=== PATIENT | female | born 1985 | race Caucasian/White ===

== ENCOUNTER 2021-01-28 18:55 | Inpatient (IN) ==
[2021-01-28] MEDS: LACTATED RINGER'S 1,000 ML IV PRN ×2 (19:05→20:06)
[2021-01-28] MEDS ORDERED: fentaNYL citrate 100 MCG/2 ML VIAL ONE (19:11)
[2021-01-28] MEDS ORDERED: ePHEDrine sulfate 50 MG/ML AMP ONE (19:11)
[2021-01-28] MEDS ORDERED: BUPIVACAINE 0.25% 30 ML VIAL ONE (19:11)
[2021-01-28] MEDS ORDERED: SODIUM CHLORIDE 0.9% INJ 10 ML VIAL ONE (19:11)
[2021-01-28] MEDS ORDERED: fentaNYL 2MCG/ML ROPIVACAINE 1.25MG/ML 100 ML BAG EPI ONE (19:14)
[2021-01-28] MEDS ORDERED: OXYTOCIN 30 UNITS/500 ML BAG IV PRN ×2 (19:17→22:23)
[2021-01-28 19:40] LABS: Hematocrit (blood only) 37.9 % (37-47); Hemoglobin 12.7 g/dL (12.0-16.0); Mean Corpuscular Hemoglobin 29.3 pg (25-34); Mean Corpuscular Hgb Conc 33.5 g/dL (32-36); Mean Corpuscular Volume 87.3 fL (80-100); Mean Platelet Volume 11.1 fL (7.4-10.4); Platelet Count 156 K/uL (130-400); RDW Coefficient of Variation 16.3 % (11.5-14.5); RDW Standard Deviation 52.7 fL (36.4-46.3); Red Blood Count 4.34 M/uL (4.2-5.4); White Blood Count 19.12 K/uL (4.8-10.8)
[2021-01-28] MEDS ORDERED: NALOXONE HCL 0.4 MG/1 ML VIAL/CARP IV PRN (20:11)
[2021-01-28] MEDS ORDERED: NALOXONE HCL 1 MG in SODIUM CHLORIDE 0.9% 1000ML 1,000 ML IV PRN (20:11)
[2021-01-28] MEDS ORDERED: NALBUPHINE HCL INJ 10 MG/ML AMP IV PRN (20:11)
[2021-01-28] MEDS ORDERED: ONDANSETRON INJ 2 MG/ML 2 ML VIAL IV PRN (20:11)
[2021-01-28] MEDS ORDERED: diphenhydrAMINE 50 MG/ML VIAL IV PRN (20:11)
--- NOTE | 2021-01-28 20:11 | Anesthesiology Consultation ---
Date of Service January 28, 2021 Assessment & Plan ASA ASA2 Proposed Anesthesia Anesthesia Type: Labor Epidural Risk / Benefits Reviewed With: PT / POA / Parent / Guardian, Accepts Plan and Informed Consent Obtained History Height/Weight Height: 5 ft 1 in Weight: 79.832 kg Allergies Allergy/AdvReac Type Severity Reaction Status Date / Time nickel Allergy Intermediate CONTACT Verified 08/02/20 19:00 RASH, BLISTERS cinnamon AdvReac Mild thrush IN Verified 08/02/20 19:00 MOUTH janet AdvReac Mild Diarrhea Verified 08/02/20 19:00 Medications Home Medications Medication Instructions Recorded Confirmed Last Taken sertraline 100 mg tablet 100 mg PO QPM 08/02/20 01/28/21 01/28/21 ferrous sulfate 325 mg (65 mg 325 mg PO DAILY 01/28/21 01/28/21 01/28/21 iron) tablet (Iron (ferrous sulfate)) vit no.95-ferrous 1 tab PO DAILY 01/28/21 01/28/21 01/28/21 fumarate 28 mg-folic acid 800 mcg tablet () Active Medications Generic Name Dose Route Start Last Admin Trade Name Freq PRN Reason Stop Dose Admin Ropivacaine 100 ml 01/28/21 20:11 01/28/21 20:41 Fentanyl 2mcg/Ml Ropivacaine 1.25mg/Ml 100 Ml Bag EPI 01/29/21 20:10 100 ml PRN PRN Administration Pain R/T Labor Protocol Past Medical History Medical History (Updated 01/28/21 @ 19:36 by Erin Vidales RN) Anxiety and depression Exercise-induced asthma GERD (gastroesophageal reflux disease) Gestational diabetes Diet Controlled Palpitations Wrist fracture, left Exercise / Class Metabolic Activity II 4-5 Yardwork/Stairs/Walk up hill Past Family History Family History Grandmother (Paternal) Family history of diabetes mellitus Grandmother (Maternal) Family history of diabetes mellitus Grandfather (Maternal) Family hx of colon cancer Mother Hearing loss Allergies Asthma Grandmother Hypertension Stroke Grandfather Cancer Other Heart disease No family history of adverse response to anesthesia No family history of bleeding disorder Past Surgical History Surgical History History of surgery on arm History of surgery on wrist [place] teeth removed Past Anesthesia History No Hx of Anesthesia Complications and No Family Hx of Anesthesia Complications History of PONV No Hx of PONV and No Hx of Motion Sickness Social History Smoking Status: Never smoker Hx Alcohol Use: Yes Alcohol type: beer, wine and hard liquor alcohol intake frequency: a few times a month Hx Substance Use: No substance use type: does not use Review of Systems denies fever/cough/ colds/ chest pain/ SOB/ IMELDA denies IMELDA Physical Exam Vital Signs Last Vital Signs Temp 37.6 C H 01/28/21 19:17 Pulse 85 01/28/21 20:48 Resp 18 01/28/21 19:17 BP 99/54 L 01/28/21 20:50 Pulse Ox 98 01/28/21 20:47 ENMT Mouth: no TMJ abnormality and no dentition abnormality Thyromental Distance: > or= 3.5 Finger Breadths Mallampati Class: II Neck neck extension not limited Respiratory normal respiratory effort; no respiratory distress Auscultation: lungs clear to auscultation bilaterally Cardiovascular Rate/Rhythm: regular rate and regular rhythm Neurologic moves all extremities Psychiatric Orientation: alert and oriented x 3 Testing Laboratory Results 01/28/21 19:29 01/28/21 19:41 POC Glucose 112 H
[2021-01-28] MEDS ORDERED: GENTAMICIN CONSULT ACTIVE PRN (20:40)
[2021-01-28] MEDS: fentaNYL 2MCG/ML ROPIVACAINE 1.25MG/ML 100 ML BAG EPI PRN (20:41)
[2021-01-28] MEDS ORDERED: ACETAMINOPHEN 1000 MG/100 ML IV IV ONE (20:42)
[2021-01-28] MEDS ORDERED: ACETAMINOPHEN 1,000 MG/100 ML VIAL IV STA (20:50)
--- NOTE | 2021-01-28 20:55 | Communication Note ---
Date of Service: January 28, 2021 during first attempt at epidural placement, no blood noted in touey needle, but blood found on pull back with epidural catheter. pt noted a headace on left side of protestant at same time. no evidence of csf. i did not injected any local into catheter. i immediately withdrew catheter and went one level higher. no issues with second attempt. headache is not constant, but worsens with contractions and quick head movements.
[2021-01-28] MEDS: ePHEDrine sulfate 50 MG/ML AMP IV PRN (21:08)
--- NOTE | 2021-01-28 21:08 | Obstetrical Progress Note ---
Date of Service January 28, 2021 Assessment & Plan (1) : Plan: Pt presented to L&D with home rn vascular she was attempting a home delivery Pt has SROM at around 1300HRS. According to rn vascular, she became fully dilated and after 3hrs of pushing,[employer] brought her to the hospital. she reports amniotic fluid was clear at SROM. and no meconium seen On arrival to L&D, pt was admitted. she reported severe pain with ctx and requested epidural analgesia labs were ordered and anesthesia consult placed FHR CAT1 Ctx 1-3min VE; Anterior lip/0 station Labs show WBC- 19, Temp37.6, No fundal tenderness, no odor w/vag disch- In view of pt;s presentation, will start antibx Above finding is discussed with pt and spouse Expectant management for now in anticipation for vaginal delivery Admission and Anticipated Discharge Date Admission Date: January 28, 2021 Results & Data ([facility]) Vital Signs (Past 12 Hours) Vital Signs Temp Pulse Resp BP Pulse Ox 01/28/21 20:54 107/57 L 01/28/21 20:52 85 101/54 L 99 01/28/21 20:50 83 99/54 L 01/28/21 20:48 85 106/59 L 01/28/21 20:47 85 98 01/28/21 20:46 87 102/57 L 01/28/21 20:44 85 101/57 L 01/28/21 20:42 86 99/58 L 98 01/28/21 20:40 84 98/53 L 01/28/21 20:38 91 H 115/58 L 01/28/21 20:37 84 98 01/28/21 20:32 82 97 01/28/21 20:31 79 130/82 01/28/21 20:27 83 97 01/28/21 20:22 90 97 01/28/21 20:17 81 99 01/28/21 20:12 83 97 01/28/21 20:07 85 99 01/28/21 20:02 78 98 01/28/21 19:57 78 98 01/28/21 19:52 79 98 01/28/21 19:47 77 98 01/28/21 19:42 80 98 01/28/21 19:37 80 98 01/28/21 19:32 79 98 01/28/21 19:27 82 98 01/28/21 19:22 76 98 01/28/21 19:17 37.6 C H 18 01/28/21 19:06 80 121/70
[2021-01-28] MEDS: AMPICILLIN 2,000 MG in SODIUM CHLOR 0.9% AD-VAN 100 ML IV SCH (21:15)
[2021-01-28] MEDS: GENTAMICIN SULFATE 400 MG in DEXTROSE 5% 100 ML IV SCH (21:47)
--- NOTE | 2021-01-28 22:23 | Labor Progress Brief Note ---
Date of Service January 28, 2021 Assessment & Plan (1) : Plan: FHR; CAT1 Ctx; 5-6 mins VE; Unchanged discussed Pitocin augmentation ' Pt agrees EFW by emilee; 8-9lbs Admission and Anticipated Discharge Date Admission Date: January 28, 2021 Results & Data ([facility]) Vital Signs (Past 12 Hours) Vital Signs Temp Pulse Resp BP Pulse Ox 01/28/21 22:17 106 H 98 01/28/21 22:12 93 H 100 01/28/21 22:07 88 99 01/28/21 22:02 89 99 01/28/21 22:00 37.1 C 18 01/28/21 21:57 96 H 99 01/28/21 21:52 91 H 99 01/28/21 21:47 93 H 100 01/28/21 21:45 99 H 16 106/49 L 01/28/21 21:42 87 99 01/28/21 21:39 90 105/51 L 01/28/21 21:37 88 99 01/28/21 21:34 78 102/53 L 01/28/21 21:32 88 98 01/28/21 21:30 98 H 18 97/52 L 01/28/21 21:29 94 H 80 L 01/28/21 21:27 83 100 01/28/21 21:23 86 105/52 L 92 01/28/21 21:22 92 H 100 01/28/21 21:19 90 102/55 L 01/28/21 21:18 87 84 L 01/28/21 21:17 87 97 01/28/21 21:15 18 01/28/21 21:14 80 123/58 L 01/28/21 21:12 93 H 100 01/28/21 21:10 79 110/56 L 01/28/21 21:09 73 115/58 L 01/28/21 21:07 67 99 01/28/21 21:05 79 81/53 L 01/28/21 21:02 76 98 01/28/21 21:01 75 92/55 L 01/28/21 21:00 37.1 C 16 01/28/21 20:57 80 98 01/28/21 20:54 107/57 L 01/28/21 20:52 85 101/54 L 99 01/28/21 20:50 83 99/54 L 01/28/21 20:48 85 106/59 L 01/28/21 20:47 85 98 01/28/21 20:46 87 102/57 L 01/28/21 20:45 20 01/28/21 20:44 85 101/57 L 01/28/21 20:42 86 99/58 L 98 01/28/21 20:40 84 18 98/53 L 01/28/21 20:38 91 H 115/58 L 01/28/21 20:37 84 98 01/28/21 20:35 18 01/28/21 20:32 82 97 01/28/21 20:31 79 130/82 01/28/21 20:27 83 97 01/28/21 20:22 90 97 01/28/21 20:17 81 99 01/28/21 20:12 83 97 01/28/21 20:07 85 99 01/28/21 20:02 78 98 01/28/21 19:57 78 98 01/28/21 19:52 79 98 01/28/21 19:47 77 98 01/28/21 19:42 80 98 01/28/21 19:37 80 98 01/28/21 19:32 79 98 01/28/21 19:27 82 98 01/28/21 19:22 76 98 01/28/21 19:17 37.6 C H 18 01/28/21 19:06 80 121/70
[2021-01-29] MEDS: ePHEDrine sulfate 50 MG/ML AMP IV PRN (00:21)
[2021-01-29] MEDS: LACTATED RINGER'S 1,000 ML IV PRN (02:21)
[2021-01-29] MEDS: AMPICILLIN 2,000 MG in SODIUM CHLOR 0.9% AD-VAN 100 ML IV SCH ×4 (03:02→23:47)
--- NOTE | 2021-01-29 03:34 | Labor Progress Brief Note ---
Date of Service January 29, 2021 Assessment & Plan (1) : Plan: Pt doing well FHR; CAT1 Ctx; 1-2 Pitocin; 14mu VE 10/100/-1 Pt will start pushing Admission and Anticipated Discharge Date Admission Date: January 28, 2021 Results & Data ([facility]) Vital Signs (Past 12 Hours) Vital Signs Temp Pulse Resp BP Pulse Ox 01/29/21 03:27 98 H 100 01/29/21 03:22 98 H 97 01/29/21 03:17 89 117/66 98 01/29/21 03:12 87 98 01/29/21 03:07 83 99 01/29/21 03:02 93 H 118/69 99 01/29/21 02:57 93 H 100 01/29/21 02:52 96 H 98 01/29/21 02:49 81 119/60 01/29/21 02:47 96 H 99 01/29/21 02:42 94 H 99 01/29/21 02:37 91 H 99 01/29/21 02:32 95 H 124/71 99 01/29/21 02:27 102 H 99 01/29/21 02:22 91 H 97 01/29/21 02:18 103 H 117/60 01/29/21 02:17 101 H 97 01/29/21 02:12 107 H 98 01/29/21 02:07 96 H 97 01/29/21 02:05 37.2 C 18 01/29/21 02:02 90 102/54 L 97 01/29/21 01:57 83 95 01/29/21 01:52 87 95 01/29/21 01:47 91 H 95 01/29/21 01:42 86 95 01/29/21 01:37 83 94 01/29/21 01:33 83 94/50 L 01/29/21 01:32 81 96 01/29/21 01:27 79 96 01/29/21 01:22 80 95 01/29/21 01:17 79 95 01/29/21 01:16 93 H 92/52 L 01/29/21 01:12 91 H 95 01/29/21 01:08 16 01/29/21 01:07 103 H 95 01/29/21 01:02 91 H 95 01/29/21 01:01 89 88/53 L 01/29/21 00:57 96 H 96 01/29/21 00:52 89 93 01/29/21 00:47 92 H 90/53 L 93 01/29/21 00:42 84 94 01/29/21 00:37 95 H 94 01/29/21 00:35 87 94 01/29/21 00:32 89 95/56 L 95 01/29/21 00:30 90 94 01/29/21 00:27 84 95 01/29/21 00:25 82 94 01/29/21 00:22 71 96 01/29/21 00:18 78 88/54 L 94 01/29/21 00:17 79 95 01/29/21 00:12 79 96 01/29/21 00:07 91 H 96 01/29/21 00:03 37.3 C 81 18 127/60 01/29/21 00:02 83 98 01/29/21 00:01 86 94 01/28/21 23:57 85 95 01/28/21 23:52 81 96 01/28/21 23:47 81 96 01/28/21 23:46 85 113/67 01/28/21 23:42 82 97 01/28/21 23:37 89 98 01/28/21 23:32 95 H 97 01/28/21 23:31 80 114/67 01/28/21 23:27 81 98 01/28/21 23:22 86 98 01/28/21 23:17 90 98 01/28/21 23:16 85 113/61 01/28/21 23:12 88 98 01/28/21 23:07 89 98 01/28/21 23:02 86 114/66 98 01/28/21 23:00 16 01/28/21 22:57 80 98 01/28/21 22:52 87 98 01/28/21 22:47 96 H 98 01/28/21 22:42 107 H 98 01/28/21 22:41 96 H 112/64 01/28/21 22:37 96 H 99 01/28/21 22:32 94 H 100 01/28/21 22:27 92 H 100 01/28/21 22:22 96 H 99 01/28/21 22:17 106 H 98 01/28/21 22:12 93 H 100 01/28/21 22:07 88 99 01/28/21 22:02 89 99 01/28/21 22:00 37.1 C 18 01/28/21 21:57 96 H 99 01/28/21 21:52 91 H 99 01/28/21 21:47 93 H 100 01/28/21 21:45 99 H 16 106/49 L 01/28/21 21:42 87 99 01/28/21 21:39 90 105/51 L 01/28/21 21:37 88 99 01/28/21 21:34 78 102/53 L 01/28/21 21:32 88 98 01/28/21 21:30 98 H 18 97/52 L 01/28/21 21:29 94 H 80 L 01/28/21 21:27 83 100 01/28/21 21:23 86 105/52 L 92 01/28/21 21:22 92 H 100 01/28/21 21:19 90 102/55 L 01/28/21 21:18 87 84 L 01/28/21 21:17 87 97 01/28/21 21:15 18 01/28/21 21:14 80 123/58 L 01/28/21 21:12 93 H 100 01/28/21 21:10 79 110/56 L 01/28/21 21:09 73 115/58 L 01/28/21 21:07 67 99 01/28/21 21:05 79 81/53 L 01/28/21 21:02 76 98 01/28/21 21:01 75 92/55 L 01/28/21 21:00 37.1 C 16 01/28/21 20:57 80 98 01/28/21 20:54 107/57 L 01/28/21 20:52 85 101/54 L 99 01/28/21 20:50 83 99/54 L 01/28/21 20:48 85 106/59 L 01/28/21 20:47 85 98 01/28/21 20:46 87 102/57 L 01/28/21 20:45 20 01/28/21 20:44 85 101/57 L 01/28/21 20:42 86 99/58 L 98 01/28/21 20:40 84 18 98/53 L 01/28/21 20:38 91 H 115/58 L 01/28/21 20:37 84 98 01/28/21 20:35 18 01/28/21 20:32 82 97 01/28/21 20:31 79 130/82 01/28/21 20:27 83 97 01/28/21 20:22 90 97 01/28/21 20:17 81 99 01/28/21 20:12 83 97 01/28/21 20:07 85 99 01/28/21 20:02 78 98 01/28/21 19:57 78 98 01/28/21 19:52 79 98 01/28/21 19:47 77 98 01/28/21 19:42 80 98 01/28/21 19:37 80 98 01/28/21 19:32 79 98 01/28/21 19:27 82 98 01/28/21 19:22 76 98 01/28/21 19:17 37.6 C H 18 01/28/21 19:06 80 121/70
[2021-01-29] MEDS: fentaNYL 2MCG/ML ROPIVACAINE 1.25MG/ML 100 ML BAG EPI PRN (03:47)
--- NOTE | 2021-01-29 06:29 | History & Physical Bridge Note ---
Date of Service January 29, 2021 History & Physical Bridge Note I have examined the patient, reviewed the History & Physical and in the interval since the performance of the History & Physical I have noted the following changes of clinical significance: no changes noted
--- NOTE | 2021-01-29 06:31 | Labor Progress Brief Note ---
Date of Service January 29, 2021 Assessment & Plan (1) : Plan: No change in station after 3 hrs of effective pushing pt is agreeable to c/sec surgery risk and complications discussed and reviewed with pt and spouse consent obtained will proceed to OR Admission and Anticipated Discharge Date Admission Date: January 28, 2021 Results & Data ([facility]) Vital Signs (Past 12 Hours) Vital Signs Temp Pulse Resp BP Pulse Ox 01/29/21 06:25 89 100 01/29/21 06:20 36.9 C 87 98 01/29/21 06:16 90 115/66 01/29/21 06:15 92 H 98 01/29/21 06:10 95 H 98 01/29/21 06:06 115 H 81 L 01/29/21 06:05 109 H 97 01/29/21 06:02 99 H 148/85 H 01/29/21 06:00 107 H 96 01/29/21 05:57 111 H 87 L 01/29/21 05:55 101 H 98 01/29/21 05:49 105 H 97 01/29/21 05:47 103 H 118/63 01/29/21 05:46 110 H 90 01/29/21 05:44 105 H 97 01/29/21 05:39 104 H 97 01/29/21 05:34 108 H 97 01/29/21 05:32 118 H 142/80 H 01/29/21 05:29 111 H 96 01/29/21 05:28 70 L 01/29/21 05:24 114 H 97 01/29/21 05:19 120 H 97 01/29/21 05:14 104 H 97 01/29/21 05:13 115 H 82 L 01/29/21 05:09 107 H 98 01/29/21 05:07 112 H 80 L 01/29/21 05:04 104 H 97 01/29/21 05:01 101 H 80 L 01/29/21 04:59 93 H 96 01/29/21 04:55 37.8 C H 18 01/29/21 04:54 101 H 98 01/29/21 04:50 98 H 88 L 01/29/21 04:49 98 H 93 01/29/21 04:46 103 H 111/56 L 01/29/21 04:43 91 H 97 01/29/21 04:41 106 H 83 L 01/29/21 04:38 94 H 97 01/29/21 04:34 97 H 91 01/29/21 04:33 97 H 113/57 L 93 01/29/21 04:27 87 98 01/29/21 04:25 109 H 86 L 01/29/21 04:22 95 H 98 01/29/21 04:17 119 H 97 01/29/21 04:16 109 H 107/63 01/29/21 04:12 94 H 98 01/29/21 04:07 96 H 97 01/29/21 04:02 96 H 122/71 97 01/29/21 03:57 127 H 96 01/29/21 03:52 112 H 97 01/29/21 03:47 100 H 124/63 98 01/29/21 03:42 96 H 100 01/29/21 03:37 89 99 01/29/21 03:32 37.3 C 96 H 18 133/66 98 01/29/21 03:27 98 H 100 01/29/21 03:22 98 H 97 01/29/21 03:17 89 117/66 98 01/29/21 03:12 87 98 01/29/21 03:07 83 99 01/29/21 03:02 93 H 118/69 99 01/29/21 02:57 93 H 100 01/29/21 02:52 96 H 98 01/29/21 02:49 81 119/60 01/29/21 02:47 96 H 99 01/29/21 02:42 94 H 99 01/29/21 02:37 91 H 99 01/29/21 02:32 95 H 124/71 99 01/29/21 02:27 102 H 99 01/29/21 02:22 91 H 97 01/29/21 02:18 103 H 117/60 01/29/21 02:17 101 H 97 01/29/21 02:12 107 H 98 01/29/21 02:07 96 H 97 01/29/21 02:05 37.2 C 18 01/29/21 02:02 90 102/54 L 97 01/29/21 01:57 83 95 01/29/21 01:52 87 95 01/29/21 01:47 91 H 95 01/29/21 01:42 86 95 01/29/21 01:37 83 94 01/29/21 01:33 83 94/50 L 01/29/21 01:32 81 96 01/29/21 01:27 79 96 01/29/21 01:22 80 95 01/29/21 01:17 79 95 01/29/21 01:16 93 H 92/52 L 01/29/21 01:12 91 H 95 01/29/21 01:08 16 01/29/21 01:07 103 H 95 01/29/21 01:02 91 H 95 01/29/21 01:01 89 88/53 L 01/29/21 00:57 96 H 96 01/29/21 00:52 89 93 01/29/21 00:47 92 H 90/53 L 93 01/29/21 00:42 84 94 01/29/21 00:37 95 H 94 01/29/21 00:35 87 94 01/29/21 00:32 89 95/56 L 95 01/29/21 00:30 90 94 01/29/21 00:27 84 95 01/29/21 00:25 82 94 01/29/21 00:22 71 96 01/29/21 00:18 78 88/54 L 94 01/29/21 00:17 79 95 01/29/21 00:12 79 96 01/29/21 00:07 91 H 96 01/29/21 00:03 37.3 C 81 18 127/60 01/29/21 00:02 83 98 01/29/21 00:01 86 94 01/28/21 23:57 85 95 01/28/21 23:52 81 96 01/28/21 23:47 81 96 01/28/21 23:46 85 113/67 01/28/21 23:42 82 97 01/28/21 23:37 89 98 01/28/21 23:32 95 H 97 01/28/21 23:31 80 114/67 01/28/21 23:27 81 98 01/28/21 23:22 86 98 01/28/21 23:17 90 98 01/28/21 23:16 85 113/61 01/28/21 23:12 88 98 01/28/21 23:07 89 98 01/28/21 23:02 86 114/66 98 01/28/21 23:00 16 01/28/21 22:57 80 98 01/28/21 22:52 87 98 01/28/21 22:47 96 H 98 01/28/21 22:42 107 H 98 01/28/21 22:41 96 H 112/64 01/28/21 22:37 96 H 99 01/28/21 22:32 94 H 100 01/28/21 22:27 92 H 100 01/28/21 22:22 96 H 99 01/28/21 22:17 106 H 98 01/28/21 22:12 93 H 100 01/28/21 22:07 88 99 01/28/21 22:02 89 99 01/28/21 22:00 37.1 C 18 01/28/21 21:57 96 H 99 01/28/21 21:52 91 H 99 01/28/21 21:47 93 H 100 01/28/21 21:45 99 H 16 106/49 L 01/28/21 21:42 87 99 01/28/21 21:39 90 105/51 L 01/28/21 21:37 88 99 01/28/21 21:34 78 102/53 L 01/28/21 21:32 88 98 01/28/21 21:30 98 H 18 97/52 L 01/28/21 21:29 94 H 80 L 01/28/21 21:27 83 100 01/28/21 21:23 86 105/52 L 92 01/28/21 21:22 92 H 100 01/28/21 21:19 90 102/55 L 01/28/21 21:18 87 84 L 01/28/21 21:17 87 97 01/28/21 21:15 18 01/28/21 21:14 80 123/58 L 01/28/21 21:12 93 H 100 01/28/21 21:10 79 110/56 L 01/28/21 21:09 73 115/58 L 01/28/21 21:07 67 99 01/28/21 21:05 79 81/53 L 01/28/21 21:02 76 98 01/28/21 21:01 75 92/55 L 01/28/21 21:00 37.1 C 16 01/28/21 20:57 80 98 01/28/21 20:54 107/57 L 01/28/21 20:52 85 101/54 L 99 01/28/21 20:50 83 99/54 L 01/28/21 20:48 85 106/59 L 01/28/21 20:47 85 98 01/28/21 20:46 87 102/57 L 01/28/21 20:45 20 01/28/21 20:44 85 101/57 L 01/28/21 20:42 86 99/58 L 98 01/28/21 20:40 84 18 98/53 L 01/28/21 20:38 91 H 115/58 L 01/28/21 20:37 84 98 01/28/21 20:35 18 01/28/21 20:32 82 97 01/28/21 20:31 79 130/82 01/28/21 20:27 83 97 01/28/21 20:22 90 97 01/28/21 20:17 81 99 01/28/21 20:12 83 97 01/28/21 20:07 85 99 01/28/21 20:02 78 98 01/28/21 19:57 78 98 01/28/21 19:52 79 98 01/28/21 19:47 77 98 01/28/21 19:42 80 98 01/28/21 19:37 80 98 01/28/21 19:32 79 98 01/28/21 19:27 82 98 01/28/21 19:22 76 98 01/28/21 19:17 37.6 C H 18 01/28/21 19:06 80 121/70
[2021-01-29] MEDS ORDERED: LACTATED RINGER'S 1,000 ML IV SCH ×3 (06:45→09:15)
[2021-01-29] MEDS ORDERED: ceFAZolin 2000MG 2,000 MG/15 ML SYR IV STA (06:47)
[2021-01-29] MEDS ORDERED: CITRIC ACID/SODIUM CITRATE 15 ML UDC PO STA (06:48)
--- NOTE | 2021-01-29 07:03 | Anesthesiology Consultation ---
Date of Service January 29, 2021 Assessment & Plan (1) Encounter for pre-operative examination: Chart Review Chart Review: Acceptable Risk for Surgery Consults Requested none ASA [id number] Proposed Anesthesia Anesthesia Type: Labor Epidural Risk / Benefits Reviewed With: PT / POA / Parent / Guardian, Accepts Plan and Informed Consent Obtained History Surgery Operation Date: 01/29/21 19:15 Proposed Procedures p Section in LD - Rohan Soni MD Height/Weight Height: 5 ft 1 in Weight: 79.832 kg Allergies Allergy/AdvReac Type Severity Reaction Status Date / Time nickel Allergy Intermediate CONTACT Verified 08/02/20 19:00 RASH, BLISTERS cinnamon AdvReac Mild thrush IN Verified 08/02/20 19:00 MOUTH janet AdvReac Mild Diarrhea Verified 08/02/20 19:00 Medications Home Medications Medication Instructions Recorded Confirmed Last Taken sertraline 100 mg tablet 100 mg PO QPM 08/02/20 01/28/21 01/28/21 ferrous sulfate 325 mg (65 mg 325 mg PO DAILY 01/28/21 01/28/21 01/28/21 iron) tablet (Iron (ferrous sulfate)) vit no.95-ferrous 1 tab PO DAILY 01/28/21 01/28/21 01/28/21 fumarate 28 mg-folic acid 800 mcg tablet () Active Medications Generic Name Dose Route Start Last Admin Trade Name Freq PRN Reason Stop Dose Admin Ephedrine Sulfate 10 mg 01/28/21 20:11 01/29/21 00:21 Ephedrine Sulfate 50 Mg/Ml Amp IV 01/29/21 20:10 10 mg Q5M PRN Administration Hypotension Lactated Ringer's 1,000 mls @ 125 mls/hr 01/28/21 19:17 01/29/21 05:11 Lr IV 01/30/21 19:16 125 mls/hr .Q8H PRN Infusion L&D Protocol Protocol Ampicillin Sodium 2,000 mg/ 100 mls @ 200 mls/hr 01/28/21 21:00 01/29/21 03:35 Sodium Chloride IV 02/07/21 20:59 Infused Q6H LYN Infusion Gentamicin Sulfate 400 mg/ 110 mls @ 100 mls/hr 01/28/21 21:00 01/28/21 23:16 Dextrose IV 02/07/21 20:59 Infused Q24H LYN Infusion Protocol Oxytocin 30 units in 500 mls @ 0 mls/hr 01/28/21 22:23 01/29/21 06:25 Pitocin IV 01/30/21 22:22 0 units/hr .Q0M PRN 0 mls/hr Labor Induction/Augmentation Titration Protocol 0 UNITS/HR Ropivacaine 100 ml 01/28/21 20:11 01/29/21 03:47 Fentanyl 2mcg/Ml Ropivacaine 1.25mg/Ml 100 Ml Bag EPI 01/29/21 20:10 100 ml PRN PRN Administration Pain R/T Labor Protocol NPO Date Last Intake of Fluids: 01/29/21 Time Last Intake of Fluids: 06:00 Date Last Intake of Solids: 01/28/21 Time Last Intake of Solids: 00:00 Past Medical History Medical History Anxiety and depression Exercise-induced asthma GERD (gastroesophageal reflux disease) Gestational diabetes Diet Controlled Palpitations Wrist fracture, left Exercise / Class Metabolic Activity II 4-5 Yardwork/Stairs/Walk up hill Past Family History Family History Grandmother (Paternal) Family history of diabetes mellitus Grandmother (Maternal) Family history of diabetes mellitus Grandfather (Maternal) Family hx of colon cancer Mother Hearing loss Allergies Asthma Grandmother Hypertension Stroke Grandfather Cancer Other Heart disease No family history of adverse response to anesthesia No family history of bleeding disorder Past Surgical History Surgical History History of surgery on arm History of surgery on wrist [place] teeth removed Past Anesthesia History No Hx of Anesthesia Complications and No Family Hx of Anesthesia Complications History of PONV No Hx of PONV and No Hx of Motion Sickness Social History Smoking Status: Never smoker Hx Alcohol Use: Yes Alcohol type: beer, wine and hard liquor alcohol intake frequency: a few times a month Hx Substance Use: No substance use type: does not use Physical Exam Vital Signs Last Vital Signs Temp 98.4 F 01/29/21 06:20 Pulse 99 H 01/29/21 06:59 Resp 18 01/29/21 04:55 BP 114/64 01/29/21 06:46 Pulse Ox 89 L 01/29/21 06:59 ENMT Mouth: no dentition abnormality Thyromental Distance: > or= 3.5 Finger Breadths Mallampati Class: II Neck normal visual inspection Respiratory normal respiratory effort Auscultation: lungs clear to auscultation bilaterally Cardiovascular Rate/Rhythm: regular rate and regular rhythm Testing Laboratory Results 01/28/21 19:29 01/28/21 19:41 POC Glucose 112 H
[2021-01-29] MEDS ORDERED: OXYTOCIN 10 UNITS/ML VIAL ONE ×2 (07:25→08:08)
[2021-01-29] MEDS ORDERED: LIDOCAINE 2%/EPINEPHRINE 1:200,000 20 ML SDV ONE (07:37)
[2021-01-29] MEDS ORDERED: PHENYLEPHRINE 100MCG/ML 5ML SYR ONE (07:37)
[2021-01-29] MEDS ORDERED: MoRPHine SULFATE PF 1 MG/ML 10 ML AMP/VIAL ONE (07:37)
[2021-01-29] MEDS ORDERED: METHYLERGONOVINE MALEATE 0.2 MG/ML AMP ONE (07:48)
[2021-01-29] MEDS ORDERED: ONDANSETRON INJ 2 MG/ML 2 ML VIAL ONE (07:53)
--- NOTE | 2021-01-29 08:27 | Pharmacy Report ---
Pharmacy Abx Dose Short Note - Date of Service January 29, 2021 - Assessment & Plan Assessment * 36 year old F receiving GENTAMICIN + AMPICILLIN for empiric intrapartum therapy in the setting of SROM and 3 hrs of pushing at home prior to hospital presentation * Pharmacy has been consulted to dose gentamicin * Today is Day #2 abx therapy Plan Gentamicin * Renal fxn not assessed this hospitalization. Will add STAT SCr to today's labs. * Patient begin 5mg/kg total body weight (400mg) Q 24 hrs last evening with plans to monitor and adjust per [facility] if therapy to continue >/= 72 hrs. eCrCl should be >60cc/min in order to continue with current regimen (SCr ordered) Pharmacy will continue to follow and will adjust dose/frequency as necessary. Thank you.
[2021-01-29] MEDS ORDERED: OXYTOCIN 10 UNITS/ML VIAL IM ONE (08:33)
[2021-01-29] MEDS ORDERED: METHYLENE BLUE 0.5% 10 ML VIAL ONE (08:35)
[2021-01-29] MEDS ORDERED: miSOPROStoL 200 MCG TAB ONE (08:36)
--- NOTE | 2021-01-29 09:11 | Anesthesiology Progress Note ---
Date of Service January 29, 2021 Anesthesia Post Procedure Vital Signs Vital Signs: Temp Pulse Resp BP Pulse Ox 01/29/21 09:07 87 94 01/29/21 09:02 86 90 01/29/21 09:00 83 128/60 89 L 01/29/21 08:57 86 100 01/29/21 08:55 94 H 92 01/29/21 07:12 92 H 94 01/29/21 07:09 109 H 87 L 01/29/21 07:07 88 99 01/29/21 07:02 95 H 122/71 98 01/29/21 06:59 99 H 89 L 01/29/21 06:55 97 H 92 01/29/21 06:50 99 H 96 01/29/21 06:49 102 H 75 L 01/29/21 06:46 88 114/64 01/29/21 06:45 95 H 100 01/29/21 06:40 91 H 90 01/29/21 06:39 107 H 89 L 01/29/21 06:35 92 H 100 01/29/21 06:32 90 108/63 01/29/21 06:30 88 100 01/29/21 06:25 89 100 01/29/21 06:20 98.4 F 87 98 01/29/21 06:16 90 115/66 01/29/21 06:15 92 H 98 01/29/21 06:10 95 H 98 01/29/21 06:06 115 H 81 L 01/29/21 06:05 109 H 97 01/29/21 06:02 99 H 148/85 H 01/29/21 06:00 107 H 96 01/29/21 05:57 111 H 87 L 01/29/21 05:55 101 H 98 01/29/21 05:49 105 H 97 01/29/21 05:47 103 H 118/63 01/29/21 05:46 110 H 90 01/29/21 05:44 105 H 97 01/29/21 05:39 104 H 97 01/29/21 05:34 108 H 97 01/29/21 05:32 118 H 142/80 H 01/29/21 05:29 111 H 96 01/29/21 05:28 70 L 01/29/21 05:24 114 H 97 01/29/21 05:19 120 H 97 01/29/21 05:14 104 H 97 01/29/21 05:13 115 H 82 L 01/29/21 05:09 107 H 98 01/29/21 05:07 112 H 80 L 01/29/21 05:04 104 H 97 01/29/21 05:01 101 H 80 L 01/29/21 04:59 93 H 96 01/29/21 04:55 100.0 F H 18 01/29/21 04:54 101 H 98 01/29/21 04:50 98 H 88 L 01/29/21 04:49 98 H 93 01/29/21 04:46 103 H 111/56 L 01/29/21 04:43 91 H 97 01/29/21 04:41 106 H 83 L 01/29/21 04:38 94 H 97 01/29/21 04:34 97 H 91 01/29/21 04:33 97 H 113/57 L 93 01/29/21 04:27 87 98 01/29/21 04:25 109 H 86 L 01/29/21 04:22 95 H 98 01/29/21 04:17 119 H 97 01/29/21 04:16 109 H 107/63 01/29/21 04:12 94 H 98 01/29/21 04:07 96 H 97 01/29/21 04:02 96 H 122/71 97 01/29/21 03:57 127 H 96 01/29/21 03:52 112 H 97 01/29/21 03:47 100 H 124/63 98 01/29/21 03:42 96 H 100 01/29/21 03:37 89 99 01/29/21 03:32 99.1 F 96 H 18 133/66 98 01/29/21 03:27 98 H 100 01/29/21 03:22 98 H 97 01/29/21 03:17 89 117/66 98 01/29/21 03:12 87 98 01/29/21 03:07 83 99 01/29/21 03:02 93 H 118/69 99 01/29/21 02:57 93 H 100 01/29/21 02:52 96 H 98 01/29/21 02:49 81 119/60 01/29/21 02:47 96 H 99 01/29/21 02:42 94 H 99 01/29/21 02:37 91 H 99 01/29/21 02:32 95 H 124/71 99 01/29/21 02:27 102 H 99 01/29/21 02:22 91 H 97 01/29/21 02:18 103 H 117/60 01/29/21 02:17 101 H 97 01/29/21 02:12 107 H 98 01/29/21 02:07 96 H 97 01/29/21 02:05 99.0 F 18 01/29/21 02:02 90 102/54 L 97 01/29/21 01:57 83 95 01/29/21 01:52 87 95 01/29/21 01:47 91 H 95 01/29/21 01:42 86 95 01/29/21 01:37 83 94 01/29/21 01:33 83 94/50 L 01/29/21 01:32 81 96 01/29/21 01:27 79 96 01/29/21 01:22 80 95 01/29/21 01:17 79 95 01/29/21 01:16 93 H 92/52 L 01/29/21 01:12 91 H 95 01/29/21 01:08 16 01/29/21 01:07 103 H 95 01/29/21 01:02 91 H 95 01/29/21 01:01 89 88/53 L 01/29/21 00:57 96 H 96 01/29/21 00:52 89 93 01/29/21 00:47 92 H 90/53 L 93 01/29/21 00:42 84 94 01/29/21 00:37 95 H 94 01/29/21 00:35 87 94 01/29/21 00:32 89 95/56 L 95 01/29/21 00:30 90 94 01/29/21 00:27 84 95 01/29/21 00:25 82 94 01/29/21 00:22 71 96 01/29/21 00:18 78 88/54 L 94 01/29/21 00:17 79 95 01/29/21 00:12 79 96 01/29/21 00:07 91 H 96 01/29/21 00:03 99.1 F 81 18 127/60 01/29/21 00:02 83 98 01/29/21 00:01 86 94 01/28/21 23:57 85 95 01/28/21 23:52 81 96 01/28/21 23:47 81 96 01/28/21 23:46 85 113/67 01/28/21 23:42 82 97 01/28/21 23:37 89 98 01/28/21 23:32 95 H 97 01/28/21 23:31 80 114/67 01/28/21 23:27 81 98 01/28/21 23:22 86 98 01/28/21 23:17 90 98 01/28/21 23:16 85 113/61 01/28/21 23:12 88 98 01/28/21 23:07 89 98 01/28/21 23:02 86 114/66 98 01/28/21 23:00 16 01/28/21 22:57 80 98 01/28/21 22:52 87 98 01/28/21 22:47 96 H 98 01/28/21 22:42 107 H 98 01/28/21 22:41 96 H 112/64 01/28/21 22:37 96 H 99 01/28/21 22:32 94 H 100 01/28/21 22:27 92 H 100 01/28/21 22:22 96 H 99 01/28/21 22:17 106 H 98 01/28/21 22:12 93 H 100 01/28/21 22:07 88 99 01/28/21 22:02 89 99 01/28/21 22:00 98.8 F 18 01/28/21 21:57 96 H 99 01/28/21 21:52 91 H 99 01/28/21 21:47 93 H 100 01/28/21 21:45 99 H 16 106/49 L 01/28/21 21:42 87 99 01/28/21 21:39 90 105/51 L 01/28/21 21:37 88 99 01/28/21 21:34 78 102/53 L 01/28/21 21:32 88 98 01/28/21 21:30 98 H 18 97/52 L 01/28/21 21:29 94 H 80 L 01/28/21 21:27 83 100 01/28/21 21:23 86 105/52 L 92 01/28/21 21:22 92 H 100 01/28/21 21:19 90 102/55 L 01/28/21 21:18 87 84 L 01/28/21 21:17 87 97 01/28/21 21:15 18 01/28/21 21:14 80 123/58 L 01/28/21 21:12 93 H 100 01/28/21 21:10 79 110/56 L 01/28/21 21:09 73 115/58 L 01/28/21 21:07 67 99 01/28/21 21:05 79 81/53 L 01/28/21 21:02 76 98 01/28/21 21:01 75 92/55 L 01/28/21 21:00 98.8 F 16 01/28/21 20:57 80 98 01/28/21 20:54 107/57 L 01/28/21 20:52 85 101/54 L 99 01/28/21 20:50 83 99/54 L 01/28/21 20:48 85 106/59 L 01/28/21 20:47 85 98 01/28/21 20:46 87 102/57 L 01/28/21 20:45 20 01/28/21 20:44 85 101/57 L 01/28/21 20:42 86 99/58 L 98 01/28/21 20:40 84 18 98/53 L 01/28/21 20:38 91 H 115/58 L 01/28/21 20:37 84 98 01/28/21 20:35 18 01/28/21 20:32 82 97 01/28/21 20:31 79 130/82 01/28/21 20:27 83 97 01/28/21 20:22 90 97 01/28/21 20:17 81 99 01/28/21 20:12 83 97 01/28/21 20:07 85 99 01/28/21 20:02 78 98 01/28/21 19:57 78 98 01/28/21 19:52 79 98 01/28/21 19:47 77 98 01/28/21 19:42 80 98 01/28/21 19:37 80 98 01/28/21 19:32 79 98 01/28/21 19:27 82 98 01/28/21 19:22 76 98 01/28/21 19:17 99.7 F H 18 01/28/21 19:06 80 121/70 Pain Intensity Left Abdomen: Pain Intensity: 8 Transfer of Care Handoff Completed per policy Notes Mental Status: alert / awake / arousable and participated in evaluation Nausea / Vomiting: adequately controlled Pain: adequately controlled Airway Patency, RR, SpO2: stable & adequate BP & HR: stable & adequate Hydration State: stable & adequate Neuraxial Anesthesia: was administered and sensory block is resolving Anesthetic Complications: no major complications apparent and Pt Satisfied with anesthetic care
[2021-01-29] MEDS ORDERED: DIPHTHERIA/TETANUS/PERTUSSIS 0.5 ML SYR/VIAL IM ONE (09:14)
[2021-01-29] MEDS ORDERED: MAGNESIUM HYDROXIDE SUSP 30 ML UDC PO PRN (09:14)
[2021-01-29] MEDS ORDERED: SENNA 8.6 MG TAB PO PRN (09:14)
[2021-01-29] MEDS ORDERED: HYDROCORTISONE ACETATE 25 MG SUPP PR PRN (09:14)
[2021-01-29] MEDS ORDERED: SUPERCREAM 0.870% 15 GM JAR EXT PRN (09:14)
[2021-01-29] MEDS ORDERED: BENZOCAINE 20% AER SPR 82.5 GM CAN EXT PRN (09:14)
[2021-01-29 09:20] LABS: Base Excess Cord Arterial Bld -2.2 mEq/L (-9-1.8); CO2 Cord Arterial Blood 43 mmHg (39.1-73.5); HCO3 Cord Arterial Blood 24 mmol/L (19.7-28.5); PO2 Cord Arterial Blood 28 mmHg (4.1-31.7); pH Cord Arterial Blood 7.35 (7.1-7.38)
[2021-01-29 09:24] LABS: Base Excess Cord Venous Blood -3.8 mEq/L (-7.7-1.9); Cord Venous Blood HCO3 21 mmol/L (18.4-26.8); Cord Venous Blood PCO2 36 mmHg (30.4-57.2); Cord Venous Blood PO2 32 mmHg (14.1-43.3); Cord Venous Blood pH 7.38 (7.20-7.44)
[2021-01-29] MEDS ORDERED: miSOPROStoL 200 MCG TAB PR ONE (09:48)
[2021-01-29 09:51] LABS: Oxygen Sat Cord Arterial Blood < 60.0 % (<60)
[2021-01-29] MEDS ORDERED: MEPERIDINE HCL 25 MG/ML CARP/VIAL IV PRN (10:07)
[2021-01-29] MEDS ORDERED: KETOROLAC 30 MG/ML VIAL IV PRN (10:07)
[2021-01-29] MEDS ORDERED: NALOXONE HCL 0.4 MG/1 ML VIAL/CARP IV PRN (10:07)
[2021-01-29] MEDS ORDERED: NALOXONE HCL 1 MG in SODIUM CHLORIDE 0.9% 1000ML 1,000 ML IV PRN (10:07)
[2021-01-29] MEDS ORDERED: NALBUPHINE HCL INJ 10 MG/ML AMP IV PRN (10:07)
[2021-01-29] MEDS ORDERED: ePHEDrine sulfate 50 MG/ML AMP IV PRN (10:07)
[2021-01-29] MEDS ORDERED: LACTATED RINGER'S 500 ML IV PRN (10:07)
[2021-01-29] MEDS ORDERED: MoRPHine SULFATE PF 1 MG/ML 10 ML AMP/VIAL INT SPINAL ONE (10:07)
[2021-01-29] MEDS ORDERED: NALOXONE HCL 0.08 MG in SYRINGE 1.8 ML IV PRN (10:07)
[2021-01-29] MEDS ORDERED: diphenhydrAMINE 50 MG/ML VIAL IV PRN (10:07)
[2021-01-29] MEDS ORDERED: NO NARCOTICS OR SEDATIVES SCH (10:15)
[2021-01-29] MEDS ORDERED: DC INTRASPINAL MORPHINE SCH (10:15)
[2021-01-29] MEDS ORDERED: SODIUM CHLORIDE 0.9% 1000ML 1,000 ML IV SCH (10:15)
[2021-01-29] MEDS: OXYTOCIN 20 UNITS in D5W AND LACTATED RINGERS 1,000 ML IV SCH (12:10)
[2021-01-29 13:42] LABS: Creatinine Clr Calc Pharmacy 103.4 ml/min; Est GFR (African American) 124.9 ml/min; Est GFR (Non-African American) 107.7 ml/min
[2021-01-29] MEDS: SIMETHICONE 80 MG CHEW PO SCH ×3 (16:54→23:49)
[2021-01-29] MEDS: GENTAMICIN SULFATE 400 MG in DEXTROSE 5% 100 ML IV SCH (21:05)
[2021-01-29] MEDS: DOCUSATE SODIUM 100 MG CAP PO SCH (23:49)
[2021-01-30] MEDS: OXYTOCIN 20 UNITS in D5W AND LACTATED RINGERS 1,000 ML IV SCH (00:41)
[2021-01-30] MEDS ORDERED: diphenhydrAMINE Capsule 25 MG CAP PO PRN (04:08)
[2021-01-30] MEDS ORDERED: PROMETHAZINE HCL 25 MG in SODIUM CHLORIDE 0.9% 50 ML IV PRN (04:08)
[2021-01-30] MEDS ORDERED: diphenhydrAMINE 50 MG/ML VIAL IV PRN (04:08)
[2021-01-30] MEDS ORDERED: ONDANSETRON INJ 2 MG/ML 2 ML VIAL IV PRN (04:08)
[2021-01-30] MEDS ORDERED: oxyCODONE/ACETAMINOPHEN 5mg/325mg TAB PO PRN (04:08)
[2021-01-30] MEDS: AMPICILLIN 2,000 MG in SODIUM CHLOR 0.9% AD-VAN 100 ML IV SCH ×4 (05:52→23:06)
[2021-01-30 06:27] LABS: Basophils # (auto) 0.02 K/uL (0-0.2); Basophils % (auto) 0.1 %; Eosinophils # (auto) 0.04 K/uL (0-0.5); Eosinophils % (auto) 0.2 %; Hematocrit (blood only) 29.7 % (37-47); Hemoglobin 9.9 g/dL (12.0-16.0); Immature Granulocytes # (auto) 0.07 K/uL (0.00-0.02); Immature Granulocytes % (auto) 0.4 %; Lymphocytes % (auto) 10.1 %; Mean Corpuscular Hemoglobin 29.5 pg (25-34); Mean Corpuscular Hgb Conc 33.3 g/dL (32-36); Mean Corpuscular Volume 88.4 fL (80-100); Mean Platelet Volume 10.3 fL (7.4-10.4); Monocytes # (auto) 1.46 K/uL (0.11-0.59); Monocytes % (auto) 8.2 %; Neutrophils # (auto) 14.35 K/uL (1.4-6.5); Platelet Count 134 K/uL (130-400); RDW Coefficient of Variation 16.9 % (11.5-14.5); RDW Standard Deviation 54.9 fL (36.4-46.3); Red Blood Count 3.36 M/uL (4.2-5.4); White Blood Count 17.74 K/uL (4.8-10.8)
[2021-01-30] MEDS: SIMETHICONE 80 MG CHEW PO SCH ×4 (07:54→21:03)
[2021-01-30] MEDS: FERROUS SULFATE 325 MG TAB PO SCH (07:54)
[2021-01-30] MEDS: PRENATAL VITAMIN 1 TAB PO SCH (07:54)
[2021-01-30] MEDS: IBUPROFEN 600 MG TAB PO PRN ×2 (07:54→13:22)
[2021-01-30] MEDS: DOCUSATE SODIUM 100 MG CAP PO SCH ×2 (07:54→21:03)
--- NOTE | 2021-01-30 11:32 | Obstetrical Progress Note ---
Date of Service January 30, 2021 Assessment & Plan Admission and Anticipated Discharge Date Admission Date: January 28, 2021 Subjective Patient is seen and examined. She feels well, no complaints. Pain is under control with oral meds. Ambulating without dizziness Voiding without difficulty Tolerating regular diet with out N&V Flatus + BM neg Bleeding is minimal No fever/ chills/ CP/ SOB/ N&V/ Leg pain Breast feeding without problems Vital Signs Temp Pulse Resp BP Pulse Ox 01/30/21 08:00 37.3 C 99 H 18 96/58 L 97 01/30/21 04:20 36.9 C 99 H 18 102/67 95 01/30/21 03:35 18 95 01/30/21 02:10 18 95 01/30/21 01:00 18 93 01/30/21 00:00 18 95 PE: General: Alert, orientedx3, NAD CVS: S1S2 RRR Lungs; CTAB Abd: soft, NT, ND, BS+, fundus firm, below Umbilicus Incision: Clean, dry, intact Perineum intact, Lochia rubra minimal Ext; NT, trace edema, Homans sign neg/ neg AP: 36 yo s/p C Section, pod# 1 VSS Afebrile doing well Continue routine postop care Encourage ambulation, PO intake All questions were answered D/C home tomorrow Results & Data ([facility]) Vital Signs (Past 12 Hours) Vital Signs Temp Pulse Resp BP Pulse Ox 01/30/21 08:00 37.3 C 99 H 18 96/58 L 97 01/30/21 04:20 36.9 C 99 H 18 102/67 95 01/30/21 03:35 18 95 01/30/21 02:10 18 95 01/30/21 01:00 18 93 01/30/21 00:00 18 95
[2021-01-30] MEDS ORDERED: bisacodyL 5 MG TABEC PO SCH (20:00)
[2021-01-30] MEDS: GENTAMICIN SULFATE 400 MG in DEXTROSE 5% 100 ML IV SCH (21:03)
[2021-01-31] MEDS: AMPICILLIN 2,000 MG in SODIUM CHLOR 0.9% AD-VAN 100 ML IV SCH (05:26)
[2021-01-31 06:08] LABS: Basophils # (auto) 0.01 K/uL (0-0.2); Basophils % (auto) 0.1 %; Eosinophils # (auto) 0.13 K/uL (0-0.5); Eosinophils % (auto) 0.8 %; Hematocrit (blood only) 29.9 % (37-47); Hemoglobin 9.7 g/dL (12.0-16.0); Immature Granulocytes # (auto) 0.03 K/uL (0.00-0.02); Immature Granulocytes % (auto) 0.2 %; Lymphocytes # (auto) 2.41 K/uL (1.2-3.4); Lymphocytes % (auto) 15.7 %; Mean Corpuscular Hemoglobin 29.3 pg (25-34); Mean Corpuscular Hgb Conc 32.4 g/dL (32-36); Mean Corpuscular Volume 90.3 fL (80-100); Mean Platelet Volume 11.4 fL (7.4-10.4); Monocytes # (auto) 0.79 K/uL (0.11-0.59); Monocytes % (auto) 5.1 %; Neutrophils % (auto) 78.1 %; Platelet Count 182 K/uL (130-400); RDW Coefficient of Variation 16.9 % (11.5-14.5); Red Blood Count 3.31 M/uL (4.2-5.4); White Blood Count 15.37 K/uL (4.8-10.8)
[2021-01-31] MEDS: FERROUS SULFATE 325 MG TAB PO SCH (08:11)
[2021-01-31] MEDS: IBUPROFEN 600 MG TAB PO PRN (08:11)
[2021-01-31] MEDS: DOCUSATE SODIUM 100 MG CAP PO SCH (08:11)
--- NOTE | 2021-01-31 08:13 | Operative Report (OR) ---
DATE OF PROCEDURE: 01/29/21 INDICATION FOR SURGERY: This is a 36-year-old G1, P0 who presented to labor and delivery on 01/29/20 20. She was 40 weeks and 1 day. The patient had received course at [facility] in [facility]. She, however, decided to attempt home delivery with a patient safety coordinator. The patient prese nted to labor and delivery after pushing 3 hours with a patient safety coordinator at home. On arrival to [facility], heart rate was category 1. She was examined and found to be 9 cm dilated. She received Pitocin and went on to be 10 cm dilated and pushed for 3 hours without change in station. Decision was therefore made to perform section. PREOPERATIVE DIAGNOSES: 1. at term. 2. Failure to descend. 3. Cephalopelvic disproportion. POSTOPERATIVE DIAGNOSES: 1. at term. 2. Failure to descend. 3. Cephalopelvic disproportion. SURGEON: Rohan Soni MD. ELECTRICIAN HELPER POWERHOUSE: SIMON Sesay. ANESTHESIA: Epidural. FINDINGS: Live male in cephalic presentation, weight is pending, Apgars 9 and 9. COMPLICATIONS: None. DRAINS: Earl catheter. ESTIMATED BLOOD LOSS: 600 mL. INTRAVENOUS FLUIDS: 1600 mL. URINE OUTPUT: 200 mL of blood-tinged urine. PATHOLOGY: Placenta and cord blood and cord gases. PROCEDURES: 1. Primary section. 2. Retrograde bladder instillation. DESCRIPTION OF PROCEDURE: The patient was taken to the operating room where she was prepped and drap ed in normal sterile fashion in dorsal position. A Pfannenstiel incision was made and carried down t o the fascia with a scalpel. Fascia was incised in the midline and extended laterally on both sides with Sharif scissors. Fascia was sharply dissected off the rectus abdominis muscle superiorly and infe riorly. Rectus abdominis muscle was identified and entered superiorly to inferiorly. Peritoneum was identified and entered sharply. Once inside the abdomen, an Tito retractor was placed for retract ion. The vesicouterine peritoneum was sharply dissected over the lower segment of the uterus using M etzenbaum scissors. A low transverse incision was made with a scalpel. Hook And Eye Machine Operator was able to push the 's head back into the abdominal cavity. Infant was delivered at raumatically. Delayed cord clamp was performed after 1 minute. Infant was handed over to the [facility] pediatric team. Cord blood and cord gases were obtained. Placenta was manually removed and the ut erus was exteriorized and cleared of all clots and debris. Uterus was closed in two layers with Vicr yl stitch. There was good hemostasis. At this point, anesthesia informed us that the Earl catheter had blood-tinged urine. The bladder at the vesicouterine peritoneum was inspected and there did not appear to be a lesion into the bladder i ntraabdominally. Methylene blue was mixed with saline and the retrograde filling of the bladder was performed. 200 mL of urine was placed into the bladder in retrograde manner through the Earl cathete r. There was no dye seen intraabdominally. This was reassuring that there was no lesion or cystotom y in the bladder. Copious amount of irrigation was used to irrigate the abdomen. Peritoneum was closed in a running fa shion using plain suture. Rectus abdominis muscle was loosely reapproximated using [id number] s utures of plain suture. Fascia was closed in a running fashion using Vicryl stitch. The subcutaneou s space was reapproximated with plain suture and the skin was closed with cydney. All instruments were removed from the abdomen and accounted for x2 including sponges, needles, and re tractors. The patient was sent to recovery in stable condition. Job ID: [id number]
[2021-01-31] MEDS: PRENATAL VITAMIN 1 TAB PO SCH (08:14)
[2021-01-31] MEDS: SIMETHICONE 80 MG CHEW PO SCH (08:14)
[2021-01-31] MEDS ORDERED: bisacodyL 10 MG SUPP PR PRN (09:14)
--- NOTE | 2021-01-31 10:39 | Obstetrical Progress Note ---
Date of Service January 31, 2021 Subjective Ambulation: ambulating normally Voiding: no voiding problems Passing Gas:: Yes Diet Tolerance:: regular diet Lochia:: Small Feeding Type:: breast feeding Current Pain Level(1-10): 0 doing well, no BM, would like to go home Physical Exam Constitutional WD/WN, vitals as above comfortable abdomen soft and non-tender, incision c/d/i no edema neg Jayleen's for d/c today f/u in 1 week Results & Data ([facility]) Vital Signs (Past 12 Hours) Vital Signs Temp Pulse Resp BP Pulse Ox 01/31/21 10:00 36.8 C 64 18 103/70 100 01/31/21 08:00 36.8 C 64 18 103/70 100 01/31/21 00:50 36.8 C 84 18 107/72 98 Laboratory Results Laboratory Results - last 72 hr 01/28/21 01/28/21 01/28/21 19:29 19:41 Unknown WBC 19.12 H RBC 4.34 Hgb 12.7 Hct 37.9 MCV 87.3 MCH 29.3 MCHC 33.5 RDW Std Deviation 52.7 H RDW Coeff of Talita 16.3 H Plt Count 156 MPV 11.1 H Immature Gran % (Auto) Neut % (Auto) Lymph % (Auto) [place] % (Auto) Eos % (Auto) Baso % (Auto) Neut # (Auto) Lymph # (Auto) [place] # (Auto) Eos # (Auto) Baso # (Auto) Immature Gran # (Auto) Cord ABG pH Cord ABG pCO2 Cord ABG pO2 Cord ABG HCO3 Cord ABG Base Excess Cord ABG O2 Sat Cord VBG pH Cord VBG pCO2 Cord VBG pO2 Cord VBG HCO3 Cord VBG Base Excess Cord VBG O2 Sat Barometric Pressure Blood Gas Comments Creatinine Est Cr Clr Drug Dosing Est GFR ( Amer) Est GFR (Non-Af Amer) POC Glucose 112 H SARS-CoV-2, RNA, NAAT NEGATIVE 01/29/21 01/29/21 01/29/21 07:45 07:45 13:09 WBC RBC Hgb Hct MCV MCH MCHC RDW Std Deviation RDW Coeff of Talita Plt Count MPV Immature Gran % (Auto) Neut % (Auto) Lymph % (Auto) [place] % (Auto) Eos % (Auto) Baso % (Auto) Neut # (Auto) Lymph # (Auto) [place] # (Auto) Eos # (Auto) Baso # (Auto) Immature Gran # (Auto) Cord ABG pH 7.35 Cord ABG pCO2 43 Cord ABG pO2 28 Cord ABG HCO3 24 Cord ABG Base Excess -2.2 Cord ABG O2 Sat < 60.0 Cord VBG pH 7.38 Cord VBG pCO2 36 Cord VBG pO2 32 Cord VBG HCO3 21 Cord VBG Base Excess -3.8 Cord VBG O2 Sat 67.0 Barometric Pressure 730.8 730.9 Blood Gas Comments RODGERS RODGERS Creatinine 0.72 Est Cr Clr Drug Dosing 103.4 Est GFR ( Amer) 124.9 Est GFR (Non-Af Amer) 107.7 POC Glucose SARS-CoV-2, RNA, NAAT 01/30/21 01/31/21 06:17 05:38 WBC 17.74 H 15.37 H RBC 3.36 L 3.31 L Hgb 9.9 L 9.7 L Hct 29.7 L 29.9 L MCV 88.4 90.3 MCH 29.5 29.3 MCHC 33.3 32.4 RDW Std Deviation 54.9 H 56.0 H RDW Coeff of Talita 16.9 H 16.9 H Plt Count 134 182 MPV 10.3 11.4 H Immature Gran % (Auto) 0.4 0.2 Neut % (Auto) 81.0 78.1 Lymph % (Auto) 10.1 15.7 [place] % (Auto) 8.2 5.1 Eos % (Auto) 0.2 0.8 Baso % (Auto) 0.1 0.1 Neut # (Auto) 14.35 H 12.00 H Lymph # (Auto) 1.80 2.41 [place] # (Auto) 1.46 H 0.79 H Eos # (Auto) 0.04 0.13 Baso # (Auto) 0.02 0.01 Immature Gran # (Auto) 0.07 H 0.03 H Cord ABG pH Cord ABG pCO2 Cord ABG pO2 Cord ABG HCO3 Cord ABG Base Excess Cord ABG O2 Sat Cord VBG pH Cord VBG pCO2 Cord VBG pO2 Cord VBG HCO3 Cord VBG Base Excess Cord VBG O2 Sat Barometric Pressure Blood Gas Comments Creatinine Est Cr Clr Drug Dosing Est GFR ( Amer) Est GFR (Non-Af Amer) POC Glucose SARS-CoV-2, RNA, NAAT
--- NOTE | 2021-02-02 08:37 | Discharge Summary (DS) ---
DATE OF ADMISSION: 01/28/2021. DATE OF DISCHARGE: 01/31/2021. HISTORY OF PRESENT ILLNESS: This is a 36-year-old G1, P0 who presented to labor and delivery on 01/04. Patient was 40 weeks and 1 day. The patient had received care at [facility] in [facility]. She, however, decided to attempt a home delivery with a medical research tech. She presented to [facility] and delivery after 3 hours of pushing with home medical research tech. On arrival to labor and delivery, jai nt was found to be 9 cm dilated. She was admitted and with Pitocin augmentation went to 10 cm. She pushed again for 3 hours without any change in station. She therefore underwent a section f or failure to descend and cephalopelvic disproportion. Details of surgery is in the surgical note. Postop, the patient met all milestones in recovery. She was discharged home in stable condition on 04/02/2020. PAST MEDICAL HISTORY: History of anxiety, exercise-induced asthma, gastroesophageal reflux disease, gestational diabetes and palpitations. PAST SURGICAL HISTORY: The patient has history of surgery on the right arm and wrist. The patient a lso had previous dental procedures done. FAMILY HISTORY: Noncontributory. ALLERGIES: No known medical allergies. REVIEW OF SYSTEMS: Negative except as dictated in the HPI. PHYSICAL EXAMINATION: VITAL SIGNS: On 01/31/2021 showed blood pressure of 103/70, pulse of 64, respiration of 18, temperat ure of 36.8. HEART: S1 and S2, regular rhythm and rate. LUNGS: Clear to auscultation bilaterally. ABDOMEN: Nontender, nondistended, positive bowel sounds. Incision clean, dry and intact. EXTREMITIES: No cyanosis, clubbing or edema. LABORATORY DATA: On 01/31/2021 showed white count of 15.3, hemoglobin of 9.7, hematocrit of 29.9 and platelets of 182. CONDITION ON DISCHARGE: Fair. OPERATIONS: Primary section. DISCHARGE DIAGNOSIS: Postop of primary section. PLAN ON DISCHARGE: The patient is discharged home with instructions regarding activity, diet, and fo llow appointment. Job ID: [id number]
== END 2021-01-31 12:45 | disposition home or self-care (01) | DRG 787 ==
LOC: OPB 18:55 → 4S1 19:00 → 4S2 01-29 15:13

== ENCOUNTER 2023-05-23 02:11 | Inpatient (IN) ==
[2023-05-23] MEDS ORDERED: LIDOCAINE 1% LOCAL 20 ML VIAL INFIL PRN (02:22)
[2023-05-23] MEDS ORDERED: LACTATED RINGER'S 1,000 ML IV PRN (02:22)
[2023-05-23] MEDS ORDERED: SODIUM CHLORIDE 0.9% 250 ML IV PRN ×2 (02:29→02:49)
--- NOTE | 2023-05-23 02:44 | Anesthesiology Consultation ---
Date of Service May 23, 2023 Assessment & Plan Chart Review Chart Review: Acceptable Risk for Surgery Consults Requested none ASA [id number] Proposed Anesthesia Anesthesia Type: General Risk / Benefits Reviewed With: PT / POA / Parent / Guardian, Accepts Plan and Informed Consent Obtained History Surgery Operation Date: 05/23/23 02:45 Proposed Procedures p Dilation and Curettage - Kev Coker MD Allergies Allergy/AdvReac Type Severity Reaction Status Date / Time nickel Allergy Intermediate CONTACT Verified 08/02/20 19:00 RASH, BLISTERS cinnamon AdvReac Mild thrush IN Verified 08/02/20 19:00 MOUTH janet AdvReac Mild Diarrhea Verified 08/02/20 19:00 Medications Home Medications Medication Instructions Recorded Confirmed Last Taken sertraline 100 mg tablet 100 mg PO QPM 08/02/20 01/28/21 01/28/21 ferrous sulfate 325 mg (65 mg 325 mg PO DAILY 01/28/21 01/28/21 01/28/21 iron) tablet (Iron (ferrous sulfate)) vit no.95-ferrous 1 tab PO DAILY 01/28/21 01/28/21 01/28/21 fumarate 28 mg-folic acid 800 mcg tablet () ibuprofen 600 mg tablet 600 mg PO Q4H #30 tabs 01/31/21 Unknown oxycodone-acetaminophen 5 mg-325 1 tab PO Q4H PRN pain #14 tabs 01/31/21 Unknown mg tablet (Percocet) NPO Date Last Intake of Fluids: 05/22/23 Time Last Intake of Fluids: 18:00 Date Last Intake of Solids: 05/22/23 Time Last Intake of Solids: 18:00 Past Medical History Medical History Gestational diabetes Diet Controlled Palpitations Wrist fracture, left GERD (gastroesophageal reflux disease) Anxiety and depression Exercise-induced asthma Exercise / Class Metabolic Activity II 4-5 Yardwork/Stairs/Walk up hill Past Family History Family History Grandmother (Paternal) Family history of diabetes mellitus Grandmother (Maternal) Family history of diabetes mellitus Grandfather (Maternal) Family hx of colon cancer Mother Hearing loss Allergies Asthma Grandmother Hypertension Stroke Grandfather Cancer Other Heart disease No family history of adverse response to anesthesia No family history of bleeding disorder Past Surgical History Surgical History History of surgery on wrist History of surgery on arm [place] teeth removed Past Anesthesia History No Hx of Anesthesia Complications and No Family Hx of Anesthesia Complications History of PONV No Hx of PONV and No Hx of Motion Sickness Social History Smoking Status: Never smoker Do You Dip or Chew Tobacco: No Hx Alcohol Use: Yes Alcohol type: beer, wine and hard liquor alcohol intake frequency: a few times a month Hx Substance Use: No substance use type: does not use Physical Exam Vital Signs Last Vital Signs Pulse 102 H 05/23/23 02:39 BP 73/49 L 05/23/23 02:39 Pulse Ox 99 05/23/23 02:37 ENMT Mouth: no dentition abnormality Thyromental Distance: > or= 3.5 Finger Breadths Mallampati Class: II Neck normal visual inspection Respiratory normal respiratory effort Auscultation: lungs clear to auscultation bilaterally Cardiovascular Rate/Rhythm: regular rate and regular rhythm
--- NOTE | 2023-05-23 02:57 | History & Physical Report ---
Date of Service May 23, 2023 Assessment & Plan (1) Retained placenta: Plan: manual removal of placenta in OR with curettage (2) Hypotension due to blood loss: Plan: IV fluids. Transfuse 2 units PRBC's Admission and Anticipated Discharge Date Admission Date: May 23, 2023 History of Present Illness Chief Complaint: retained placenta Primary Care Provider: Chapo Boyce 38 F [id number] admitted to L&D with retained placenta and acute blood loss with hypotension. Patient had a planned home delivery with placenta undelivered by videotape operator. Allergies Allergy/AdvReac Type Severity Reaction Status Date / Time nickel Allergy Intermediate CONTACT Verified 08/02/20 19:00 RASH, BLISTERS cinnamon AdvReac Mild thrush IN Verified 08/02/20 19:00 MOUTH janet AdvReac Mild Diarrhea Verified 08/02/20 19:00 Home Medications Medication Instructions Recorded Confirmed Type sertraline 100 mg tablet 100 mg PO QPM 08/02/20 01/28/21 History ferrous sulfate 325 mg (65 mg 325 mg PO DAILY 01/28/21 01/28/21 History iron) tablet (Iron (ferrous sulfate)) vit no.95-ferrous 1 tab PO DAILY 01/28/21 01/28/21 History fumarate 28 mg-folic acid 800 mcg tablet () ibuprofen 600 mg tablet 600 mg PO Q4H #30 tabs 01/31/21 Rx oxycodone-acetaminophen 5 mg-325 1 tab PO Q4H PRN pain #14 tabs 01/31/21 Rx mg tablet (Percocet) Patient History Medical History Gestational diabetes Diet Controlled Palpitations Wrist fracture, left GERD (gastroesophageal reflux disease) Anxiety and depression Exercise-induced asthma Surgical History History of surgery on wrist History of surgery on arm [place] teeth removed Family History Grandmother (Paternal) Family history of diabetes mellitus Grandmother (Maternal) Family history of diabetes mellitus Grandfather (Maternal) Family hx of colon cancer Mother Hearing loss Allergies Asthma Grandmother Hypertension Stroke Grandfather Cancer Other Heart disease No family history of adverse response to anesthesia No family history of bleeding disorder Social History Smoking Status: Never smoker Second Hand Exposure: No; Do You Dip or Chew Tobacco: No; Hx Alcohol Use: Yes Alcohol type: beer, wine and hard liquor Hx Substance Use: No Preferred Language: Tajik Communication Ability: Effective Fleet Service Clerk Required: No Beliefs That Will Affect Care: None marital status: Current Living Situation: Spouse current occupational status: employed current occupation: [employer] Feels Safe at Home: Yes Assistive Devices: Glasses OB History x1 HUMAN RESOURCE STATISTICIAN History neg Review of Systems All systems reviewed & are unremarkable except as noted in HPI & below Physical Exam Constitutional: WD/WN, vitals as above Eyes: PERRL, conjunctivae normal, anicteric sclerae Respiratory: normal respiratory effort Cardiovascular: RRR, no murmur, no edema Rate/Rhythm: regular rate and regular rhythm Gastrointestinal (Abdomen): Inspection/Auscultation: abdomen normal to inspection Musculoskeletal: Extremities: extremities normal to inspection Skin: pale Neurologic: patellar DTR's 2+ bilat, sensation intact Psychiatric: A+Ox3, euthymic affect Genitourinary: cord noted from vagina Results & Data Vital Signs (Past 12 Hours) Vital Signs Pulse BP Pulse Ox 05/23/23 02:48 47 L 77/61 L 05/23/23 02:47 99 H 100 05/23/23 02:45 93 H 71/50 L 05/23/23 02:42 64 L 05/23/23 02:42 109 H 05/23/23 02:42 100 H 68/50 L 05/23/23 02:40 107 H 87 L 05/23/23 02:39 102 H 73/49 L 05/23/23 02:37 109 H 99 05/23/23 02:36 95 H 70/47 L 05/23/23 02:34 63/40 L 05/23/23 02:32 100 H 100 05/23/23 02:30 98 H 56/36 L 05/23/23 02:27 98 H 100 05/23/23 02:24 93 H 53/31 L 05/23/23 02:22 104 H 100 05/23/23 02:20 103 H 61/36 L 05/23/23 02:17 101 H 100 05/23/23 02:16 103 H 89 L Laboratory Results Laboratory Results - last 72 hr 05/23/23 02:43 Crossmatch See Detail Code Status & VTE Plan VTE Prophylaxis Plan VTE Prophylaxis will be ordered: No (1) Retained placenta Retained placenta detail: complete placenta Qualified Code(s): O73.0 - Retained placenta without hemorrhage
[2023-05-23] MEDS: OXYTOCIN 30 UNITS/NSS 30 UNITS/500 ML BAG IV PRN (03:00)
[2023-05-23] MEDS ORDERED: ETOMIDATE 2 MG/ML 20 ML VIAL IV ONE (03:15)
[2023-05-23] MEDS ORDERED: PROPOFOL IV EMULSION 10 MG/ML 20 ML VIAL IV ONE (03:15)
[2023-05-23] MEDS ORDERED: fentaNYL citrate PF 100 MCG/2 ML VIAL ONE (03:15)
[2023-05-23 03:19] LABS: Hematocrit (blood only) 32.8 % (37.0-47.0); Hemoglobin 10.7 g/dl (12.0-16.0); Mean Corpuscular Hemoglobin 28.8 pg (25.0-34.0); Mean Corpuscular Hgb Conc 32.6 g/dL (32.0-36.0); Mean Corpuscular Volume 88.4 fL (80.0-100.0); Mean Platelet Volume 11.5 fL (9.4-12.4); Platelet Count 176 K/uL (130-400); RDW Coefficient of Variation 15.9 % (11.5-14.5); RDW Standard Deviation 51.1 fL (36.4-46.3); Red Blood Count 3.71 M/uL (4.20-5.40); White Blood Count 30.03 K/ul (4.8-10.8)
[2023-05-23] MEDS ORDERED: ceFAZolin 2000MG 2,000 MG/15 ML SYR IV SCH (03:19)
[2023-05-23] MEDS ORDERED: SUCCINYLCHOLINE 100MG/5ML SYR IV ONE (03:23)
[2023-05-23] MEDS ORDERED: MIDAZOLAM HCL 1 MG/ML 2ML VIAL ONE (03:23)
[2023-05-23] MEDS ORDERED: METHYLERGONOVINE MALEATE 0.2 MG/ML AMP ONE (03:47)
[2023-05-23] MEDS: METHYLERGONOVINE MALEATE 0.2 MG/ML AMP IM ONE (03:50)
[2023-05-23] MEDS ORDERED: ceFAZolin 330 MG/ML 1 GM VIAL ONE (03:50)
[2023-05-23] MEDS ORDERED: PHENYLEPHRINE 100MCG/ML 10ML SYR IV ONE (03:56)
--- NOTE | 2023-05-23 04:12 | Post Operative Brief Note ---
Immediate Post Op Note v1 Date of Surgery May 23, 2023 Pre & Post Diagnosis Operation Date: 05/23/23 02:45 <No data on this case meets the specified criteria> I identified the patient and participated in the time-out.: Yes Procedure Operation Date: 05/23/23 Manual removal of placenta uterine curettage repair of 1st degree laceration Surgeon Kev Coker MD Factorer none Estimated Blood Loss 400 Findings Consistent with Post-Op Diagnosis retained placenta Fluids LR 1000 ml. Specimens placenta Drains Earl Catheter Anesthesia Type General Complications none Disposition Accompanied Patient To Recovery: Yes Overlapping Procedure I was present for: the critical portions of procedure. I was immediately available: during the entire case. Back up surgeon: was not required during procedure.
[2023-05-23] MEDS ORDERED: ACETAMINOPHEN 325 MG TAB PO PRN (04:16)
[2023-05-23] MEDS ORDERED: BENZOCAINE 20% SPRY 85 APPLN/85 GM CAN EXT PRN (04:16)
[2023-05-23] MEDS ORDERED: OXYTOCIN 30 UNITS/NSS 30 UNITS/500 ML BAG IV PRN (04:16)
[2023-05-23] MEDS ORDERED: HYDROCORTISONE ACETATE 25 MG SUPP PR PRN (04:16)
[2023-05-23] MEDS ORDERED: ONDANSETRON INJ 2 MG/ML 2 ML VIAL IV PRN (04:22)
[2023-05-23] MEDS ORDERED: HYDROmorphone INJ 1 MG/ML SYRINGE IV PRN (04:22)
[2023-05-23] MEDS ORDERED: PROMETHAZINE HCL 6.25 MG in SODIUM CHLORIDE 0.9% 50 ML IV PRN (04:22)
[2023-05-23] MEDS ORDERED: NALOXONE HCL 0.4 MG/1 ML VIAL/CARP IV PRN (04:22)
[2023-05-23] MEDS ORDERED: ATROPINE SULFATE 0.1 MG/ML 10ML SYR IV PRN (04:22)
[2023-05-23] MEDS ORDERED: fentaNYL citrate PF 100 MCG/2 ML VIAL IV PRN (04:22)
[2023-05-23] MEDS ORDERED: FLUMAZENIL 0.1 MG/1 ML 10 ML VIAL IV PRN (04:22)
--- NOTE | 2023-05-23 04:24 | Anesthesiology Progress Note ---
Date of Service May 23, 2023 Anesthesia Post Procedure Vital Signs Vital Signs: Pulse BP Pulse Ox 05/23/23 04:16 119 H 87 L 05/23/23 04:13 115 H 120/63 05/23/23 04:11 119 H 97 05/23/23 04:06 112 H 100 05/23/23 03:09 99 H 92 05/23/23 03:07 100 05/23/23 03:07 96 H 05/23/23 03:07 94 H 105/58 L 05/23/23 03:02 102 H 100 05/23/23 03:01 103 H 81/53 L 05/23/23 02:57 107 H 74/52 L 100 05/23/23 02:55 100 H 91 05/23/23 02:54 97 H 72/48 L 05/23/23 02:52 95 H 100 05/23/23 02:51 96 H 71/47 L 05/23/23 02:48 47 L 77/61 L 05/23/23 02:47 99 H 100 05/23/23 02:45 93 H 71/50 L 05/23/23 02:42 64 L 05/23/23 02:42 109 H 05/23/23 02:42 100 H 68/50 L 05/23/23 02:40 107 H 87 L 05/23/23 02:39 102 H 73/49 L 05/23/23 02:37 109 H 99 05/23/23 02:36 95 H 70/47 L 05/23/23 02:34 63/40 L 05/23/23 02:32 100 H 100 05/23/23 02:30 98 H 56/36 L 05/23/23 02:27 98 H 100 05/23/23 02:24 93 H 53/31 L 05/23/23 02:22 104 H 100 05/23/23 02:20 103 H 61/36 L 05/23/23 02:17 101 H 100 05/23/23 02:16 103 H 89 L Transfer of Care Handoff Completed per policy Notes Mental Status: alert / awake / arousable Patient Amnestic to Procedure: Yes Nausea / Vomiting: adequately controlled Pain: adequately controlled Airway Patency, RR, SpO2: stable & adequate BP & HR: stable & adequate and see Notes below (pt w/ labile BP 2ndary to hemorrhage) Hydration State: stable & adequate and see Notes below (ongoing resuscitation) Anesthetic Complications: no major complications apparent
--- NOTE | 2023-05-23 05:39 | Operative Report ---
Post Operative Report Pre & Post Diagnosis Operation Date: 05/23/23 02:45 <No data on this case meets the specified criteria> I identified the patient and participated in the time-out.: Yes Procedure Operation Date: 05/23/23 02:45 <No data on this case meets the specified criteria> Surgeon Kev Coker MD Final Cleaner none Estimated Blood Loss 400 Findings Consistent with Post-Op Diagnosis retained placenta Fluids LR 1000 ml. Specimens placenta Drains Earl Anesthesia Type General Complications none Disposition Accompanied Patient To Recovery: Yes Indications retained placenta bleeding hypotension Description of Procedure Under satisfactory general anesthesia the patient was prepped draped usual sterile fashion. A timeout was called antibiotics were given preop. The patient was in the dorsal lithotomy position she had a umbilical cord hanging out from the vagina. A gloved hand was then inserted into the vagina and uterine cavity manually removing the retained placenta. The lower uterine scar was noted to be intact. Following this a weighted speculum was then placed in the posterior vault of the vagina. A ring forceps was then placed on the anterior lip of the cervix and a large banjo curette was then introduced into the uterus curetting out minimal amounts of tissue. Pitocin was started and the IV Methergine 0.2 IM was given in the patient's deltoid. No active bleeding was noted and the fundus was firm postprocedure. 1000 mcg of Cytotec were then placed in the rectum. There was a first-degree tear that was repaired with 3-0 Vicryl suture in the usual manner. Estimated blood loss was 400 mL the total fluids was 1000 mL and the urine output was 200 mL. The final sponge, needle and instrument count were found to be correct. The patient was then placed supine on a stretcher and taken to the recovery room for stabilization. I attest to the content of the Intraoperative Record and any orders documented therein. Any exceptions are noted below.
[2023-05-23] MEDS: miSOPROStoL 200 MCG TAB PR ONE (06:42)
[2023-05-23] MEDS: miSOPROStoL 200 MCG TAB ONE (06:48)
[2023-05-23] MEDS: METHYLERGONOVINE MALEATE 0.2 MG/ML AMP ONE (06:48)
--- NOTE | 2023-05-23 08:30 | Obstetrical Progress Note ---
Date of Service May 23, 2023 Assessment & Plan Admission and Anticipated Discharge Date Admission Date: May 23, 2023 Subjective Postop check Patient is seen and examined Feels well, no complaints Pain is under control with meds No CP/ SOB/ Dizziness/ N&V/ VB/ Leg pain Not OOB yet Tolerating clears UOP good, cathether in Vital Signs Temp Pulse Resp BP Pulse Ox 05/23/23 08:21 109 H 100 05/23/23 08:16 110 H 99 05/23/23 08:11 116 H 99 05/23/23 08:08 114 H 122/66 05/23/23 08:06 37.1 C 05/23/23 08:06 118 H 98 05/23/23 08:01 117 H 100 05/23/23 07:56 114 H 100 05/23/23 07:51 111 H 100 05/23/23 07:46 110 H 100 05/23/23 07:44 120/62 05/23/23 07:41 108 H 100 05/23/23 07:36 109 H 100 05/23/23 07:31 109 H 100 05/23/23 07:26 110 H 100 05/23/23 07:24 104 H 112/69 05/23/23 07:21 115 H 100 05/23/23 07:17 37.2 C 05/23/23 07:16 111 H 100 05/23/23 07:14 109 H 114/67 05/23/23 07:11 110 H 100 05/23/23 07:06 112 H 100 05/23/23 07:04 115 H 120/73 05/23/23 07:01 109 H 100 05/23/23 06:56 116 H 100 05/23/23 06:54 117 H 119/74 05/23/23 06:51 114 H 100 05/23/23 06:46 111 H 100 05/23/23 06:44 125 H 115/79 05/23/23 06:41 106 H 100 05/23/23 06:36 108 H 100 05/23/23 06:31 114 H 100 05/23/23 06:26 112 H 100 05/23/23 06:24 113 H 112/67 05/23/23 06:21 116 H 100 05/23/23 06:20 37.5 C 112 H 18 112/67 100 05/23/23 06:16 116 H 100 05/23/23 06:15 37.5 C 20 05/23/23 06:14 123 H 118/78 05/23/23 06:11 125 H 100 05/23/23 06:06 107 H 100 05/23/23 06:05 37.3 C 107 H 18 113/57 L 100 05/23/23 06:04 113/57 L 05/23/23 06:01 107 H 100 05/23/23 05:56 112 H 100 05/23/23 05:54 106 H 115/69 05/23/23 05:51 122 H 100 05/23/23 05:46 115 H 100 05/23/23 05:45 37.2 C 20 05/23/23 05:44 109 H 132/78 05/23/23 05:41 119 H 100 05/23/23 05:40 37.2 C 116 H 20 141/81 H 97 05/23/23 05:40 117 H 141/81 H 05/23/23 05:36 118 H 100 05/23/23 05:31 115 H 99 05/23/23 05:26 105 H 100 05/23/23 05:24 173 H 210/124 H 05/23/23 05:21 112 H 100 05/23/23 05:16 106 H 100 05/23/23 05:15 18 05/23/23 05:13 108 H 90 05/23/23 05:11 104 H 94 05/23/23 05:08 103 H 89 L 05/23/23 05:06 110 H 100 05/23/23 05:04 90 112/71 05/23/23 05:01 112 H 100 05/23/23 05:00 18 05/23/23 04:56 88 100 05/23/23 04:55 90 136/68 05/23/23 04:52 36.5 C 20 100 05/23/23 04:51 91 H 100 05/23/23 04:46 92 H 100 05/23/23 04:45 20 05/23/23 04:41 100 05/23/23 04:41 101 H 05/23/23 04:41 106 H 91 05/23/23 04:40 152/77 H 05/23/23 04:36 97 H 100 05/23/23 04:34 98 H 93 05/23/23 04:31 107 H 100 05/23/23 04:30 20 05/23/23 04:29 106 H 91 05/23/23 04:26 111 H 98 05/23/23 04:23 109 H 89 L 05/23/23 04:21 117 H 97 05/23/23 04:16 119 H 87 L 05/23/23 04:15 36.5 C 20 05/23/23 04:13 115 H 120/63 05/23/23 04:11 119 H 97 05/23/23 04:06 112 H 100 05/23/23 03:09 99 H 92 05/23/23 03:07 100 05/23/23 03:07 96 H 05/23/23 03:07 94 H 105/58 L 05/23/23 03:02 102 H 100 05/23/23 03:01 103 H 81/53 L 05/23/23 02:57 107 H 74/52 L 100 05/23/23 02:55 100 H 91 05/23/23 02:54 97 H 72/48 L 05/23/23 02:52 95 H 100 05/23/23 02:51 96 H 71/47 L 05/23/23 02:48 47 L 77/61 L 05/23/23 02:47 99 H 100 05/23/23 02:45 93 H 71/50 L 05/23/23 02:42 64 L 05/23/23 02:42 109 H 05/23/23 02:42 100 H 68/50 L 05/23/23 02:40 107 H 87 L 05/23/23 02:39 102 H 73/49 L 05/23/23 02:37 109 H 99 05/23/23 02:36 95 H 70/47 L 05/23/23 02:34 63/40 L 05/23/23 02:32 100 H 100 05/23/23 02:30 98 H 56/36 L 05/23/23 02:27 98 H 100 05/23/23 02:24 93 H 53/31 L 05/23/23 02:22 104 H 100 05/23/23 02:20 103 H 61/36 L 05/23/23 02:17 101 H 100 05/23/23 02:16 103 H 89 L Lab Results 05/23/23 05/23/23 Range/Units 02:43 04:31 WBC 30.03 H* (4.8-10.8) K/ul RBC 3.71 L (4.20-5.40) M/uL Hgb 10.7 L (12.0-16.0) g/dl Hct 32.8 L (37.0-47.0) % MCV 88.4 (80.0-100.0) fL MCH 28.8 (25.0-34.0) pg MCHC 32.6 (32.0-36.0) g/dL RDW Std Deviation 51.1 H (36.4-46.3) fL RDW Coeff of Talita 15.9 H (11.5-14.5) % Plt Count 176 (130-400) K/uL MPV 11.5 (9.4-12.4) fL Blood Type O Positive Blood Type Recheck O Positive Antibody Screen NEGATIVE Crossmatch See Detail PE: General: Alert, orientedx3, NAD CVS: S1S2 RRR Lungs: CTAB Abd: soft, NT, ND, BS+, fundus firm, below U No VB Ext: NT, no edema, SCD's on AP: 38 yo female s/p Home , retained placenta, delivered in OR , pod#0 VSS Afebrile doing well s/p 1 unit of PRBCC Elevated WBCC, on Cefazolin, will add Clindamycin Encourage PO intake D/C mccoy when able to get up and use BR Continue to monitor Results & Data Vital Signs (Past 12 Hours) Vital Signs Temp Pulse Resp BP Pulse Ox 05/23/23 08:21 109 H 100 05/23/23 08:16 110 H 99 05/23/23 08:11 116 H 99 05/23/23 08:08 114 H 122/66 05/23/23 08:06 37.1 C 05/23/23 08:06 118 H 98 05/23/23 08:01 117 H 100 05/23/23 07:56 114 H 100 05/23/23 07:51 111 H 100 05/23/23 07:46 110 H 100 05/23/23 07:44 120/62 05/23/23 07:41 108 H 100 05/23/23 07:36 109 H 100 05/23/23 07:31 109 H 100 05/23/23 07:26 110 H 100 05/23/23 07:24 104 H 112/69 05/23/23 07:21 115 H 100 05/23/23 07:17 37.2 C 05/23/23 07:16 111 H 100 05/23/23 07:14 109 H 114/67 05/23/23 07:11 110 H 100 05/23/23 07:06 112 H 100 05/23/23 07:04 115 H 120/73 05/23/23 07:01 109 H 100 05/23/23 06:56 116 H 100 05/23/23 06:54 117 H 119/74 05/23/23 06:51 114 H 100 05/23/23 06:46 111 H 100 05/23/23 06:44 125 H 115/79 05/23/23 06:41 106 H 100 05/23/23 06:36 108 H 100 05/23/23 06:31 114 H 100 05/23/23 06:26 112 H 100 05/23/23 06:24 113 H 112/67 05/23/23 06:21 116 H 100 05/23/23 06:20 37.5 C 112 H 18 112/67 100 05/23/23 06:16 116 H 100 05/23/23 06:15 37.5 C 20 05/23/23 06:14 123 H 118/78 05/23/23 06:11 125 H 100 05/23/23 06:06 107 H 100 05/23/23 06:05 37.3 C 107 H 18 113/57 L 100 05/23/23 06:04 113/57 L 05/23/23 06:01 107 H 100 05/23/23 05:56 112 H 100 05/23/23 05:54 106 H 115/69 05/23/23 05:51 122 H 100 05/23/23 05:46 115 H 100 05/23/23 05:45 37.2 C 20 05/23/23 05:44 109 H 132/78 05/23/23 05:41 119 H 100 05/23/23 05:40 37.2 C 116 H 20 141/81 H 97 05/23/23 05:40 117 H 141/81 H 05/23/23 05:36 118 H 100 03/20/24 05:31 115 H 99 05/23/23 05:26 105 H 100 05/23/23 05:24 173 H 210/124 H 05/23/23 05:21 112 H 100 05/23/23 05:16 106 H 100 05/23/23 05:15 18 05/23/23 05:13 108 H 90 05/23/23 05:11 104 H 94 05/23/23 05:08 103 H 89 L 05/23/23 05:06 110 H 100 05/23/23 05:04 90 112/71 05/23/23 05:01 112 H 100 05/23/23 05:00 18 05/23/23 04:56 88 100 05/23/23 04:55 90 136/68 05/23/23 04:52 36.5 C 20 100 05/23/23 04:51 91 H 100 05/23/23 04:46 92 H 100 05/23/23 04:45 20 05/23/23 04:41 100 05/23/23 04:41 101 H 05/23/23 04:41 106 H 91 05/23/23 04:40 152/77 H 05/23/23 04:36 97 H 100 05/23/23 04:34 98 H 93 05/23/23 04:31 107 H 100 05/23/23 04:30 20 05/23/23 04:29 106 H 91 05/23/23 04:26 111 H 98 05/23/23 04:23 109 H 89 L 05/23/23 04:21 117 H 97 05/23/23 04:16 119 H 87 L 05/23/23 04:15 36.5 C 20 05/23/23 04:13 115 H 120/63 05/23/23 04:11 119 H 97 05/23/23 04:06 112 H 100 05/23/23 03:09 99 H 92 05/23/23 03:07 100 05/23/23 03:07 96 H 05/23/23 03:07 94 H 105/58 L 05/23/23 03:02 102 H 100 05/23/23 03:01 103 H 81/53 L 05/23/23 02:57 107 H 74/52 L 100 05/23/23 02:55 100 H 91 05/23/23 02:54 97 H 72/48 L 05/23/23 02:52 95 H 100 05/23/23 02:51 96 H 71/47 L 05/23/23 02:48 47 L 77/61 L 05/23/23 02:47 99 H 100 05/23/23 02:45 93 H 71/50 L 05/23/23 02:42 64 L 05/23/23 02:42 109 H 05/23/23 02:42 100 H 68/50 L 05/23/23 02:40 107 H 87 L 05/23/23 02:39 102 H 73/49 L 05/23/23 02:37 109 H 99 05/23/23 02:36 95 H 70/47 L 05/23/23 02:34 63/40 L 05/23/23 02:32 100 H 100 05/23/23 02:30 98 H 56/36 L 05/23/23 02:27 98 H 100 05/23/23 02:24 93 H 53/31 L 05/23/23 02:22 104 H 100 05/23/23 02:20 103 H 61/36 L 05/23/23 02:17 101 H 100 05/23/23 02:16 103 H 89 L
[2023-05-23] MEDS: CLINDAMYCIN/D5W 900 MG/50 ML BAG IV SCH (08:50)
[2023-05-23] MEDS ORDERED: NON-FORMULARY MEDICATION (Pnv Cmb#95-Ferrous Fumarate-Fa [Prenatal] 28 mg iron- 800 mcg Ta PO SCH (09:00)
[2023-05-23] MEDS ORDERED: NON-FORMULARY MEDICATION (Ferrous Sulfate [Iron (Ferrous Sulfate)] 325 mg (65 mg iron) Tab PO SCH (09:00)
[2023-05-23] MEDS ORDERED: Nursing to Pharmacy Communication SCH (09:15)
[2023-05-23] MEDS: ceFAZolin 2000MG 2,000 MG/15 ML SYR IV SCH (09:16)
[2023-05-23 09:34] LABS: Appearance Urine Cloudy (Clear); Bacteria Urine Automated Negative (Negative); Bilirubin Urine Negative (Negative); Blood Urine 3+ (Negative); Color Urine Red; Epithelial Cell Urine Auto >30 /lpf (0-5); Glucose Urine UA Negative (Negative); Ketones Urine Trace (Negative); Leukocyte Esterase Urine 1+ (Negative); Nitrite Urine Negative (Negative); Protein Urine 2+ (Negative); RBC Urine Automated >30 /hpf (0-4); Specific Gravity Urine 1.021 (1.000-1.030); Urobilinogen Urine Negative (Negative)
--- OUTSIDE RECORDS SUMMARY | 2023-05-23 11:24 | External Medical Summary | Summary of Care ---
Author Name Unknown Organization [facility] Address [address] [place] [address] Phone [phone] Care Team Providers Care Retail Sales Representative Name Role Phone Carli Chapo Edwin Primary Care Provider Reason for Visit * Reason Comments Return Visit Encounter Details Date Type Department Care Team (Late st Contact Info) Description 05/22/2023 2:15 PM EDT Office Visit Gynecology/Obstetric s [facility] [address] [place] [phone] Pita Cha CRNP [address] [place] [phone] Multigravida of advanced maternal age in third trimester*; History of gestational diabetes mellitus (GDM); Obesity, Class I, BMI 30.0-34.9 (see actual BMI); History of ; Depression complicating , antepartum; High-risk in third trimester Allergies Active Allergy Reactions Criticality Noted Date Comments Cinnamon 11/12/2019 Zortman Flavor 11/12/2019 Nickel 11/12/2019 Nsaids Abdominal pain 11/12/2019 (can use in low doses) documented as of this encounter (statuses as of 05/22/2023) Medications Medication Sig Dispensed Refills Start Date End Date Status Pre- Formula Oral Tablet Take 1 Tablet by mouth in the morning. 0 Active Breast Pump Use as directed 1 Each 0 12/23/2020 Active Unisom Sleepgels 50 MG Oral Capsule (diphenhydrAMINE HCl (Sleep)) Take by mouth. 0 Active DHA 200 MG Oral Capsule Take by mouth. 0 Active Sertraline HCl 50 MG Oral Tablet (Zoloft)Indications :Depression complicating , antepartum Take 0.5 Tablets by mouth in the morning. For 2 weeks, then increase to 1 tab (50 mg) daily.. 30 Tablet 3 03/02/2023 Active Breast PumpIndications:Hig h-risk in third trimester Pump daily while 1 Each 0 04/06/2023 Active Famotidine 20 MG Oral Tablet (Pepcid) Take 1 Tablet by mouth in the morning and 1 Tablet before bedtime. 0 Active Amoxicillin-Pot Clavulanate 875-125 MG Oral Tablet (Augmentin) TAKE 1 TABLET BY MOUTH TWO TIMES DAILY 0 05/02/2023 Active documented as of this encounter (statuses as of 05/22/2023) Active Problems Problem Noted Date Diagnosed Date High-risk 10/31/2022 Elderly multigravida 10/03/2022 Overview: Patient will be 38 years old by EDC Counseled on genetic testing. Declines MFM referral. 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 06/23/2019 Sleep disorder Anxiety Estimated Date of Delivery Comme nts Yes 05/18/2023 Based on last me nstrual period of 08/11/2022 (Exact Date) documented as of this encounter (statuses as of 05/22/2023) Resolved Problems Problem Noted Date Diagnosed Date Resolved Date GDM (gestational diabetes mellitus) 12/28/2020 02/09/2021 Overview: Diagnosed at 35 weeks based on home glucose monitoring Nutrition consult complete Last Assessment & Plan: CONSIDERATIONS: Reviewed etiology and risks associated with gestational diabetes mellitus (GDM), including risks to , fetus, and maternal progression to Type 2 DM. Instructed on proper use of glucometer; supplies ordered, if indicated. Advised that life-long screening for diabetes is recommended every 1-3 years. RECOMMENDATIONS: Recommend monitoring blood sugars with daily fasting blood sugar (maintained at less than or equal to 95) and 1 hour postprandial measurements (maintained at less than or equal to 140). Medications should be adjusted to maintain these target values. Report levels to MFM (Maternal- Medicine) weekly. Recommend nutrition consult with RDN (Registered Dietitian [employer]). Lifestyle changes are also indicated including optimizing gestational weight gain and physical activity of 30 minutes per day, if not otherwise contraindicated in . Insulin is preferred if medications are indicated to optimize euglycemia. Metformin (preferred over glyburide) may also be used in some circumstances. Reviewed the risks and benefits of each. Recommend ultrasound, surveillance and delivery as follows: o A1GDM, delivery should be accomplished by 41w0d. o A2GDM, recommend growth assessment with MFM every 4 weeks, initiate surveillance at 32 weeks and continue until delivery at 39 weeks. Recommend intrapartum monitoring every 1-2 hours (A2GDM) or every 4 hours (A1GDM) and treat with insulin if indicated. Recommend 2-hour glucose tolerance testing with 75-gram glucose load 6-8 weeks . Antepartum anemia complicating 12/27/2020 02/09/2021 Supervision of other normal 12/06/2020 02/09/2021 Anxiety during 12/06/202010/2020 Overview: Zoloft Antepartum multigravida of a dvanced maternal age 0406/21/2020 02/09/2021 Overview: Low risk NIPT Vitamin D deficiency 021 documented as of this encounter (statuses as of 05/22/2023) Immunizations Name Administration Dates Next Due COVID-19 mRNA, LNP-s, No Pre serve, 2-Dose Series (Pfizer) 05/14/2020,04/16/2020 Seasonal Influenza, PF, 6 M & above, IM , (FluLaval or Fluzone) 12/05/2022,12/08/2020 TDAP (age 10 and older)(Boostrix) 03/02/2023,08/2020 documented as of this encounter Social History Tobacco Use Types Packs/Day Years Used Date Smoking Tobacco: Never Smokeless Tobacco: Never Alcohol Use Standard Drinks/Week Comments Not Currently 0 (1 standard drink = 0.6 oz pur e alcohol) 1/2 beer a week AUDIT-C Answer Date Recorded Frequency of Alcohol Consumption Monthly or less 06/23/2019 Average Number of Drinks Not on file 020 Frequency of Binge Drinking Not on file 06/04 Hunger Vital Sign Answer Date Recorded Within the past 12 months, y ou worried that your food would run out before you got the money to buy more. Never true 10/03/19 23 Within the past 12 months, t he food you bought just didn't last and you didn't have money to get more. Never true 10/02/2022 Nenzel Depression Scale Answer Date Recorded Nenzel Depression Scale Total 8 04/06/2023 The thought of harming myself has occurred to me . Never 04/06/2023 Estimated Date of Delivery Comme nts Yes 05/18/2023 Based on last me nstrual period of 08/11/2022 (Exact Date) Sex and Gender Information Value Date Recorded Sex Assigned at Female 10/02/2022 5:37 PM EDT Gender Identity Female 10/02/2022 5:37 PM EDT Sexual Orientation Straight 10/02/2022 5: 37 PM EDT Job Start Date Occupation Industry Not on file Not on file Not on file documented as of this encounter Last Filed Vital Signs Vital Sign Reading Time Taken Comments Blood Pressure 110/70 05/22/2023 2:18 PM EDT Pulse - - Temperature - - Respiratory Rate - - Oxygen Saturation - - Inhaled Oxygen Concentration - - Weight 88 kg (194 lb) 05/22/2023 2:18 PM EDT Height 154.9 cm (5' 1") 05/22/2023 2:18 PM EDT Body Mass Index 36.66 05/22/2023 2:18 PM EDT documented in this encounter Progress Notes * Pita Cha CRNP - 05/22/2023 2:38 PM EDT 40w4d Complaints: none Feeling ok, tired. Good FM. No contractions, bleeding, or LOF. Some cramping in the evenings. Has NST/EDOUARD/ANDREA scheduled Sunday. IOL 05/27. DARIUS Cummings documented in this encounter Nursing Notes * Eulalia Mercado LPN - 05/22/2023 2:17 PM EDT 40w4d No concerns documented in this encounter Plan of Treatment Upcoming Encounters Date Type Department Care Team (Late st Contact Info) Description 05/25/2023 11:30 AM EDT [facility] [address] [place] [id number] 05/25/2023 1:45 PM EDT Office Visit Gynecology/Obstetrics [facility] [address] [place] [id number] Pita Cha CRNP [address] [place] [phone] [facility] [address] [place] [phone] Health Maintenance Due Date Last Done Comments Diabetes Screening 1985 Depression Screening 1997 Hepatitis B (1 of - 19+ 3-dose series) 01/02/2004 COVID-19 Vaccine (2022-2 4 season) 2022 05/14/2020, 04/16/2020 Pap Smear 10/03/2025 10/03/2022, 01/26/2020, 01/26/2020 Cervical Cancer Screening 10/04/2027 HPV/Co-Test 10/04/2027 10/03/2022 DTaP,Tdap,and Td Vaccines (3 - Td or Tdap) 03/02/2033 03/02/2023, 12/08/2020 Influenza Vaccine (FLU shot) Completed 05/2022, 12/08/2020 GARDASIL-HPV IMMUNIZATION SERIES Aged Out No longer eligible b ased on patient's age to complete this topic MENINGOCOCCAL (MENACTRA/MENVEO) Aged Out No longer eligible b ased on patient's age to complete this topic Pneumococcal Vaccine: Pediatrics (0 to 5 Years) and At-Risk Patients (6 to 64 Years) Aged Out No longer eligible b ased on patient's age to complete this topic documented as of this encounter Medical Devices Not on filedocumented as of this encounter Visit Diagnoses Diagnosis Multigravida of advanced maternal age in third trimester- Primary History of gestational diabetes mellitus (GDM) Obesity, Class I, BMI 30.0-34.9 (see actual BMI) Obesity, unspecified History of Other postprocedural status Depression complicating , antepartum Mental disorders of mother, antepartum High-risk in third trimester documented in this encounter Care Teams Retail Sales Representative Relationship Specialty Start Date End Date Chapo Boyce DO [address] [place] [address] PCP - General Family Medicine 03/26/20 documented as of this encounter
--- OUTSIDE RECORDS SUMMARY | 2023-05-23 11:24 | External Medical Summary | Summary of Care ---
Author Name Unknown Organization [facility] Address [address] [facility] [place] [address] Phone [phone] Care Team Providers Care Sander Hand Name Role Phone Chapo Boyceger Primary Care Provider Encounter Details Date Type Department Care Team (Late st Contact Info) Description 05/21/2023 Telephone [facility]necology[facility] [address] [place] [address] Rosey Duong PA-C [address] [place] [address] Allergies Active Allergy Reactions Criticality Noted Date Comments Cinnamon 11/12/2019 [place] Flavor 11/12/2019 Nickel 11/12/2019 Nsaids Abdominal pain 11/12/2019 (can use in low doses) documented as of this encounter (statuses as of 05/21/2023) Medications Medication Sig Dispensed Refills Start Date [...] as of this encounter (statuses as of 05/21/2023) Active Problems Problem Noted Date Diagnosed Date [...] as of this encounter (statuses as of 05/21/2023) Resolved Problems Problem Noted Date Diagnosed Date [...] Recommend nutrition consult with RDN (Registered Dietitian Engineering And Operations Director). Lifestyle changes are also indicated including optimizing [...] as of this encounter (statuses as of 05/21/2023) Immunizations Name Administration Dates Next Due COVID-19 mRNA, LNP-s, No Pre serve, 2-Dose Series ([place]) 05/14/2020,04/16/2020 Seasonal Influenza, PF, 6 M & [...] money to get more. Never true 10/02/2022 [place] Depression Scale Answer Date Recorded [place] Depression Scale Total 8 04/06/2023 The thought [...] on file documented as of this encounter Miscellaneous Notes * Telephone Encounter - Dominique Blanco RN - 05/21/2023 10:04 AM EDT Scheduled patient for ANDREA tomorrow 05/21 at 2:15 with Pita . Attempted to call patient to make awareof message, no answer, LVM to return call. * Telephone Encounter - Rosey Duong PA-C - 05/21/2023 7:23 AM EDT Please call patient and let her know we should see her back twice this week if no delivery given past her due date. She should keep her appointments for Sunday, please add her to schedule Sunday (tomorrow) for ROB. Rosey Duong PA-C documented in this encounter Plan of Treatment Upcoming Encounters Date Type Department Care Team (Late st Contact Info) Description 05/22/2023 2:15 PM EDT Office Visit Gynecology/Obstetrics [facility] [address] [place] [address] Pita Cha CRNP [address] [place] [address] 05/25/2023 11:30 AM EDT Imaging Radiology [facility] 2nd Floor, [place] [address] [place] [address] 05/25/2023 1:45 PM EDT Office Visit Gynecology/Obstetrics [facility] [address] [place] [address] Pita Cha CRNP [address] [place] [address] Wandy Ayala Stress Tests [facility] [address] [place] [address] Health Maintenance Due Date Last Done Comments Diabetes Screening 1985 Depression Screening 1997 Hepatitis B (1 of 3 - 19+ 3-dose series) 01/02/2004 COVID-19 Vaccine [...] Not on filedocumented as of this encounter Care Teams Sander Hand Relationship Specialty Start Date End Date Chapo Boyce DO [address] [place] [facility] [place] [address] PCP - General Family Medicine 03/26/20 documented as of this encounter
--- OUTSIDE RECORDS SUMMARY | 2023-05-23 11:24 | External Medical Summary | Summary of Care ---
Author Name Unknown Organization [facility] Address [address] [place] [address] Phone [phone] Care Team Providers Care Water Main Pipe Layer Name Role Phone Chapo Boyceger Primary Care Provider Encounter Details Date Type Department Care Team (Late st Contact Info) Description 05/21/2023 Telephone [facility]cology[facility] [address] [place] [address] Rosey Duong PA-C [address] [place] [address] Allergies Active Allergy Reactions Criticality Noted Date Comments Cinnamon 11/12/2019 [place] Flavor 11/12/2019 Nickel 11/12/2019 Nsaids Abdominal pain [...] Recommend nutrition consult with RDN (Registered Dietitian Oracle Ebs Consultant). Lifestyle changes are also indicated including optimizing [...] mRNA, LNP-s, No Pre serve, 2-Dose Series (CLARED) 05/14/2020,04/16/2020 Seasonal Influenza, PF, 6 M & [...] money to get more. Never true 10/02/2022 [place] Depression Scale Answer Date Recorded [place] Depression Scale Total 8 04/06/2023 The thought [...] 05/22/2023 2:15 PM EDT Office Visit Gynecology/Obstetrics [facility] [address] [place] [address] Pita Cha CRNP [address] [place] [address] 05/25/2023 11:30 AM EDT Imaging Radiology [facility] 2nd Floor, [place] [address] [place] [address] 05/25/2023 1:45 PM EDT Office Visit Gynecology/Obstetrics [facility] [address] [place] [address] Pita Cha CRNP [address] [place] [address] Wandy Ayala Stress Tests [facility] [address] [place] [address] Health Maintenance Due Date Last Done Comments [...] filedocumented as of this encounter Care Teams Water Main Pipe Layer Relationship Specialty Start Date End Date Chapo Boyce DO [address] [facility] [place] [address] PCP - General Family Medicine 03/26/20 documented as of this encounter
--- OUTSIDE RECORDS SUMMARY | 2023-05-23 11:24 | External Medical Summary | Summary of Care ---
Author Name Unknown Organization [facility] Address [address] [place] [facility] [place] [place] [address] Phone [phone] Care Team Providers Care Laser Cutter Name Role Phone Chapo Boyceger Primary Care Provider Encounter Details Date Type Department Care Team (Late st Contact Info) Description 05/18/2023 Telephone [facility] [address] [place] [address] Rosey Duong PA-C [address] [place] [address] Allergies Active Allergy Reactions Criticality Noted Date Comments Cinnamon 11/12/2019 [place] Flavor 11/12/2019 Nickel 11/12/2019 Nsaids Abdominal pain [...] Recommend nutrition consult with RDN (Registered Dietitian Synthetic Staple Extruder). Lifestyle changes are also indicated including optimizing [...] mRNA, LNP-s, No Pre serve, 2-Dose Series ([place]) 05/14/2020,04/16/2020 Seasonal Influenza, PF, 6 M & [...] money to get more. Never true 10/02/2022 [place] Depression Scale Answer Date Recorded [place] Depression Scale Total 8 04/06/2023 The thought [...] on file documented as of this encounter Plan of Treatment Upcoming Encounters Date Type Department Care Team (Late st Contact Info) Description 05/22/2023 2:15 PM EDT Office Visit Gynecology/Obstetrics [facility] [address] [place] [address] Pita Cha CRNP [address] [place] [address] 05/25/2023 11:30 AM EDT Imaging Radiology [facility] 2nd [facility] [address] [place] [address] 05/25/2023 1:45 PM EDT Office Visit Gynecology/Obstetrics [facility] [address] [place] [address] Pita Cha CRNP [address] [place] [address] Ayala, Non Stress Tests [facility] [address] [place] [address] Health Maintenance Due Date Last Done Comments Diabetes Screening 1985 Depression Screening 1997 Hepatitis B (1 of 3 - 19+ 3-dose series) 01/02/2004 COVID-19 Vaccine (3 - 2022-2 4 season) 2022 05/14/2020, 04/16/2020 Pap Smear [...] filedocumented as of this encounter Care Teams Laser Cutter Relationship Specialty Start Date End Date Chapo Boyce DO [address] [place] [address] PCP - General Family Medicine 03/26/20 documented as of this encounter
--- OUTSIDE RECORDS SUMMARY | 2023-05-23 11:25 | External Medical Summary | Summary of Care ---
Author Name Unknown Organization [facility] Address [address] [place] [place] [place] [address] Phone [phone] Care Team Providers Care Graphics Edit Technician Name Role Phone Carli Chapoharris Pineda Primary Care Provider Reason for Visit * Reason Comments Return Visit Encounter Details Date Type Department Care Team (Late st Contact Info) Description 05/11/2023 9:15 AM EST Office Visit Gynecology/Obstetric s [facility] [address] [place] [address] Rosey Duong PA-C [address] [place] [address] High-risk in third trimester*; Multigravida of advanced maternal age in third trimester; History of gestational diabetes mellitus (GDM); Obesity, Class I, BMI 30.0-34.9 (see actual BMI); History of ; Depression complicating , antepartum; Urinary frequency Allergies Active Allergy Reactions Criticality Noted Date Comments Cinnamon 11/12/2019 [place] Flavor 11/12/2019 Nickel 11/12/2019 Nsaids Abdominal pain 11/12/2019 (can use in low doses) documented as of this encounter (statuses as of 05/11/2023) Medications Medication Sig Dispensed Refills Start Date End Date Status Pre-Bridget Formula Oral Tablet Take 1 Tablet by [...] as of this encounter (statuses as of 05/11/2023) Active Problems Problem Noted Date Diagnosed Date [...] as of this encounter (statuses as of 05/11/2023) Resolved Problems Problem Noted Date Diagnosed Date [...] Recommend nutrition consult with RDN (Registered Dietitian Staple Fiber Washer). Lifestyle changes are also indicated including optimizing [...] as of this encounter (statuses as of 05/11/2023) Immunizations Name Administration Dates Next Due COVID-19 [...] money to get more. Never true 10/02/2022 [place] Depression Scale Answer Date Recorded [place] Depression Scale Total 8 04/06/2023 The thought [...] Sign Reading Time Taken Comments Blood Pressure 108/72 05/11/2023 9:16 AM EST Pulse - - Temperature - - Respiratory Rate - - Oxygen Saturation - - Inhaled Oxygen Concentration - - Weight 87.1 kg (192 lb) 05/11/2023 9:16 AM EST Height 154.9 cm (5' 1") 05/11/2023 9:16 AM EST Body Mass Index 36.28 05/11/2023 9:16 AM EST documented in this encounter Progress Notes * Rosey Duong PA-C - 05/11/2023 9:17 AM EST 39w0d Growth u/s following last appointment: EFW: 3357 g +/-490 g which is at the 61st percentile. Vertex, normal EDOUARD. Has breast lump, R arm pit, not painful noticed when putting on deodorant. Two small firm possibly lymph nodes in R axilla approx 5 mm. Remainder of R and L breast exam normal. Prefers expectant management given breast changes with late term, advised reassess and if persist imaging. Pt comfortable with this plan. Also increased urinary frequency and discomfort with urination. Culture collected, pt states doesn't feel like normal UTI symptoms. Currently on Augmentin for sinusitis. Discussed if urine culture normal and symptoms continue OTC monistat as concern for yeast. Declines scheduling IOL today. Understands limitations with scheduling. Would be agreeable to schedule around 42 weeks if no delivery by next week. Discussed twice weekly NST and EDOUARD check for postdates and increased risk stillbirth and macrosomia. She understands. Denies VB, LOF. Pos FM. RTC in 1 week Rosey Duong PA-C documented in this encounter Nursing Notes * Linda Nieves LPN - 05/11/2023 9:19 AM EST Possible UTI. Frequency, discomfort. Lump under right armpit/breast. documented in this encounter Plan of Treatment Upcoming Encounters Date Type Department Care Team (Late st Contact Info) Description 05/18/2023 9:15 AM EDT Office Visit Gynecology/Obstetrics [facility] [address] [place] [address] Rosey Duong PA-C [address] [place] [address] Pending Results Name Type Priority Associated Diagnoses Date /Time CULTURE, URINE, QUANTITATIVE Lab Routine Urinary frequency 05/11/2023 9:51 AM EST Health Maintenance Due Date Last Done Comments [...] as of this encounter Visit Diagnoses Diagnosis High-risk in third trimester- Primary Multigravida of advanced maternal age in third trimester History of gestational diabetes mellitus (GDM) Obesity, Class I, BMI 30.0-34.9 (see actual BMI) Obesity, unspecified History of Other postprocedural status Depression complicating , antepartum Mental disorders of mother, antepartum Urinary frequency documented in this encounter Care Teams Graphics Edit Technician Relationship Specialty Start Date End Date Chapo Boyce DO [address] [place] [address] PCP - General Family Medicine 03/26/20 documented as of this encounter
--- OUTSIDE RECORDS SUMMARY | 2023-05-23 11:25 | External Medical Summary | Summary of Care ---
Author Name Unknown Organization [facility] Address [address] [place] [facility] [place] [address] Phone [phone] Care Team Providers Care Dental Coordinator Name Role Phone Carli Chapo Edwin Primary Care Provider Reason for Visit * Reason Comments Return Visit Encounter Details Date Type Department Care Team (Late st Contact Info) Description 05/04/2023 9:15 AM EST Office Visit Gynecology/Obstetric s [facility] [address] [place] [address] Rosey Duong PA-C [address] [place] [address] High-risk in third trimester*; Multigravida of advanced maternal age in third trimester; History of gestational diabetes mellitus (GDM); Obesity, Class I, BMI 30.0-34.9 (see actual BMI); History of ; Depression complicating , antepartum; Uterine size-date discrepancy, third trimester Allergies Active Allergy Reactions Criticality Noted Date Comments Cinnamon 11/12/2019 [place] Flavor 11/12/2019 Nickel 11/12/2019 Nsaids Abdominal pain 11/12/2019 (can use in low doses) documented as of this encounter (statuses as of 05/04/2023) Medications Medication Sig Dispensed Refills Start Date [...] as of this encounter (statuses as of 05/04/2023) Active Problems Problem Noted Date Diagnosed Date [...] as of this encounter (statuses as of 05/04/2023) Resolved Problems Problem Noted Date Diagnosed Date [...] Recommend nutrition consult with RDN (Registered Dietitian Slag Expander). Lifestyle changes are also indicated including optimizing [...] as of this encounter (statuses as of 05/04/2023) Immunizations Name Administration Dates Next Due COVID-19 [...] money to get more. Never true 10/02/2022 [place] Depression Scale Answer Date Recorded [place] Depression Scale Total 8 04/06/2023 The thought [...] Sign Reading Time Taken Comments Blood Pressure 118/72 05/04/2023 9:06 AM EST Pulse - - Temperature - - Respiratory Rate - - Oxygen Saturation - - Inhaled Oxygen Concentration - - Weight 85.7 kg (189 lb) 05/04/2023 9:06 AM EST Height 154.9 cm (5' 1") 05/04/2023 9:06 AM EST Body Mass Index 35.71 05/04/2023 9:06 AM EST documented in this encounter Progress Notes * Rosey Duong PA-C - 05/04/2023 9:28 AM EST 38w0d Recovering from upper respiratory symptoms. Saw her PCP. Denies bleeding, leaking, or contractions.Pos fm. Declines scheduling IOL. Reviewed benefits of scheduling now for postdates even given limited scheduling available. She understands but prefers not to schedule. S>D, growth ultrasound order to be complete as soon as possible RTC in 1 week Rosey Duong PA-C documented in this encounter Nursing Notes * Linda Nieves LPN - 05/04/2023 9:10 AM EST 38w0 Denies concerns Declines iol documented in this encounter Plan of Treatment Upcoming Encounters Date Type Department Care Team (Late st Contact Info) Description 05/04/2023 10:45 AM EST Imaging Radiology [facility] 2nd [facility] [address] [place] [address] 05/11/2023 9:15 AM EST Office Visit Gynecology/Obstetrics [facility] [address] [place] [address] Rosey Duong PA-C [address] [place] [address] 05/18/2023 9:15 AM EDT Office Visit Gynecology/Obstetrics [facility] [address] [place] [address] Rosey Duong PA-C [address] [place] [address] Scheduled Orders Name Type Priority Associated Diagnoses Orde r Schedule US PREG FOLLOW-UP EACH FETUS Medical Imaging Routine High-risk in third trimester Uterine size-date discrepancy, third trimester Expected: 05/04/2023, Expires: 06/03/2024 Health Maintenance Due Date Last Done Comments [...] , antepartum Mental disorders of mother, antepartum Uterine size-date discrepancy, third trimester documented in this encounter Care Teams Dental Coordinator Relationship Specialty Start Date End Date Chapo Boyce DO [address] [place] [address] PCP - General Family Medicine 03/26/20 documented as of this encounter
--- OUTSIDE RECORDS SUMMARY | 2023-05-23 11:25 | External Medical Summary | Summary of Care ---
Author Name Unknown Organization [facility] Address [address] [place] [place] [address] Phone [phone] Care Team Providers Care Dispensary Clerk Name Role Phone Carli Chapoharris Pineda Primary Care Provider Reason for Visit * Reason Comments Return Visit Encounter Details Date Type Department Care Team (Late st Contact Info) Description 05/18/2023 9:15 AM EDT Office Visit Gynecology/Obstetric s [facility] [address] [place] [address] Rosey Duong PA-C [address] [place] [address] High-risk in third trimester*; Post-term , 40-42 weeks of gestation; Multigravida of advanced maternal age in third trimester; History of gestational diabetes mellitus (GDM); Obesity, Class I, BMI 30.0-34.9 (see actual BMI); History of ; Depression complicating , antepartum Allergies Active Allergy Reactions Criticality Noted Date Comments Cinnamon 11/12/2019 [place] Flavor 11/12/2019 Nickel 11/12/2019 Nsaids Abdominal pain 11/12/2019 (can use in low doses) documented as of this encounter (statuses as of 05/18/2023) Medications Medication Sig Dispensed Refills Start Date [...] as of this encounter (statuses as of 05/18/2023) Active Problems Problem Noted Date Diagnosed Date [...] as of this encounter (statuses as of 05/18/2023) Resolved Problems Problem Noted Date Diagnosed Date [...] Recommend nutrition consult with RDN (Registered Dietitian Bunch Breaker). Lifestyle changes are also indicated including optimizing [...] as of this encounter (statuses as of 05/18/2023) Immunizations Name Administration Dates Next Due COVID-19 [...] money to get more. Never true 10/02/2022 [place] Depression Scale Answer Date Recorded [place] Depression Scale Total 8 04/06/2023 The thought [...] Sign Reading Time Taken Comments Blood Pressure 108/70 05/18/2023 9:18 AM EDT Pulse - - Temperature - - Respiratory Rate - - Oxygen Saturation - - Inhaled Oxygen Concentration - - Weight 88 kg (194 lb) 05/18/2023 9:18 AM EDT Height 154.9 cm (5' 1") 05/18/2023 9:18 AM EDT Body Mass Index 36.66 05/18/2023 9:18 AM EDT documented in this encounter Progress Notes * Rosey Duong PA-C - 05/18/2023 9:37 AM EDT 40w0d Declines cervical check, intermittent cramping. No timing or regularity. Denies VB, LOF. Baby is moving well. Agreeable to scheduling postdate IOL, would like to wait to after 41 weeks. Also requesting to not be scheduled 05/24 rather wait until following Sunday. Prefers [facility] delivery with milling general superintendent if able. Aware based on scheduled. Had questions about IOL, which I tried to answer. Discussed methods dependenton several factors and may vary. She was satisfied and understands variability that may arise. Labor precautions reviewed. RTC in 1 week. Will plan NST/ANDREA/EDOUARD check next visit given postdates. Rosey Duong PA-C documented in this encounter Nursing Notes * Linda Nieves LPN - 05/18/2023 9:20 AM EDT 40w0d Denies concerns. documented in this encounter Plan of Treatment Upcoming Encounters Date Type Department Care Team (Late st Contact Info) Description 05/25/2023 11:30 AM EDT Imaging Radiology [facility] 2nd [facility] [address] [place] [address] 05/25/2023 1:45 PM EDT [facility] [address] [place] [address] Pita Cha CRNP [address] [place] [address] Wandy Ayala Stress Tests [facility] [address] [place] [address] Scheduled Orders Name Type Priority Associated Diagnoses Orde r Schedule US PREG LIMITED 1 OR MORE FETUSES Medical Imaging Routine High-risk in third trimester Post-term , 40-42 weeks of gestation Expected: 05/25/2023, Expires: 06/17/2024 Health Maintenance Due Date Last Done Comments [...] Diagnoses Diagnosis High-risk in third trimester- Primary Post-term , 40-42 weeks of gestation Post term , unspecified episode of care Multigravida of advanced maternal age in third trimester History of gestational diabetes mellitus (GDM) Obesity, Class I, BMI 30.0-34.9 (see actual BMI) Obesity, unspecified History of Other postprocedural status Depression complicating , antepartum Mental disorders of mother, antepartum documented in this encounter Care Teams Dispensary Clerk Relationship Specialty Start Date End Date Chapo Boyce DO [address] [place] [address] PCP - General Family Medicine 03/26/20 documented as of this encounter
--- OUTSIDE RECORDS SUMMARY | 2023-05-23 11:25 | External Medical Summary ---
Author Name Unknown Address Unknown Organization K01[place] [place] [address] [place] [id number] Laboratory Report Ordering Provider Test Date Status BRANDY GALEANO 05/11/2023 09:51:59 Final Observation Date Value Abnormality Reference (Units) Status Bacteria identified in Specimen by Culture 05/11/2023 09:51:59 No significant growth Final Test: Culture, Urine, Quanti tative
Specimen Source: Urine, Clean Catch
Specimen Type: Urine
Specimen Date: 05/11/2023 9:51 AM
Result Date: 05/12/2023 11:10 AM
Result Status: Final result
Resulting Lab: [facility] [place]
[address]
[place] [address]

CULTURE

No significant growth

null Performing Location [facility] [place] [address] [facility] [address]
--- OUTSIDE RECORDS SUMMARY | 2023-05-23 11:25 | External Medical Summary | Summary of Care ---
Author Name Unknown Organization [facility] Address [address] [facility] [address] Phone [phone] Care Team Providers Care Director Digital Marketing Name Role Phone Carli Chapo Vitalger Primary Care Provider Reason for Visit * Reason Comments Return Visit Encounter Details Date Type Department Care Team (Late st Contact Info) Description 04/27/2023 9:15 AM EST Office Visit Gynecology/Obstetric s [facility] [address] [place] [address] Rosey Duong PA-C [address] [place] [address] High-risk in third trimester*; Multigravida of advanced [...] as of this encounter (statuses as of 04/27/2023) Medications Medication Sig Dispensed Refills Start Date [...] and 1 Tablet before bedtime. 0 Active documented as of this encounter (statuses as of 04/27/2023) Active Problems Problem Noted Date Diagnosed Date [...] as of this encounter (statuses as of 04/27/2023) Resolved Problems Problem Noted Date Diagnosed Date [...] Recommend nutrition consult with RDN (Registered Dietitian Order Editor). Lifestyle changes are also indicated including optimizing [...] as of this encounter (statuses as of 04/27/2023) Immunizations Name Administration Dates Next Due COVID-19 mRNA, LNP-s, No Pre serve, 2-Dose Series (Winerist) 05/14/2020,04/16/2020 Seasonal Influenza, PF, 6 M & [...] money to buy more. Never true 10/03/19 Within the past 12 months, t he food you bought just didn't last and you didn't have money to get more. Never true 10/02/2022 [place] Depression Scale Answer Date Recorded [place] Depression Scale Total 8 04/06/2023 The thought [...] Sign Reading Time Taken Comments Blood Pressure 108/64 04/27/2023 9:22 AM EST Pulse - - Temperature - - Respiratory Rate - - Oxygen Saturation - - Inhaled Oxygen Concentration - - Weight - - Height 154.9 cm (5' 1") 04/27/2023 9:22 AM EST Body Mass Index - - documented in this encounter Progress Notes * Rosey Duong PA-C - 04/27/2023 9:26 AM EST 37w0d GBS negative. Without complaints. Denies VB, LOF, contractions. Pos fm. RTC in 1 week Rosey Duong PA-C documented in this encounter Nursing Notes * Dominique Blanco RN - 04/27/2023 9:24 AM EST Patient here for ANDREA 37w0d No leaking/bleeding or contractions + FM No concerns documented in this encounter Plan of Treatment Upcoming Encounters Date Type Department Care Team (Late st Contact Info) Description 05/04/2023 9:15 AM EST Office Visit Gynecology/Obstetrics [facility] [address] [place] [address] Rosey Duong PA-C [address] [place] [address] 05/11/2023 9:15 AM EST Office Visit Gynecology/Obstetrics [facility] [address] [place] [address] Rosey Duong PA-C [address] [place] [address] 05/18/2023 9:15 AM EDT Office Visit Gynecology/Obstetrics [facility] [address] [place] [address] Rosey Duong PA-C [address] [place] [address] Health Maintenance Due Date Last Done Comments [...] antepartum documented in this encounter Care Teams Director Digital Marketing Relationship Specialty Start Date End Date Chapo Boyce DO [address] [place] [address] PCP - General Family Medicine 03/26/20 documented as of this encounter
--- OUTSIDE RECORDS SUMMARY | 2023-05-23 11:25 | External Medical Summary | Summary of Care ---
Author Name Unknown Organization [facility] Address [address] [facility] [address] Phone [phone] Care Team Providers Care Justice Professor Name Role Phone Carli Chapo Edwin Primary Care Provider Reason for Visit * Reason Comments Return Visit Encounter Details Date Type Department Care Team (Late st Contact Info) Description 05/18/2023 9:15 AM EDT Office Visit Gynecology/Obstetric s [facility] [address] [place] [address] Rosey Duong PA-C [address] [place] [address] High-risk in third trimester*; Post-term , 40-42 [...] Recommend nutrition consult with RDN (Registered Dietitian Records Management Clerk). Lifestyle changes are also indicated including optimizing [...] money to get more. Never true 10/02/2022 [place] Depression Scale Answer Date Recorded [place] Depression Scale Total 8 04/06/2023 The thought [...] 05/24 rather wait until following Sunday. Prefers [facility] delivery with imaging nurse if able. Aware based on scheduled. Had questions about IOL, which I tried to answer. Discussed methods dependenton several factors and may vary. She was satisfied and understands variability that may arise. Labor precautions reviewed. Will plan NST/ANDREA/EDOUARD check in 1 week given 41 wks RTC twice weekly Rosey Duong PA-C documented in this encounter Nursing Notes * Linda Nieves LPN - 05/18/2023 9:20 AM EDT 40w0d Denies concerns. documented in this encounter Plan of Treatment Upcoming Encounters Date Type Department Care Team (Late st Contact Info) Description 05/25/2023 11:30 AM EDT Imaging Radiology [facility] [address] [facility] [address] [place] [address] 05/25/2023 1:45 PM EDT Office Visit Gynecology/Obstetrics [facility] [address] [place] [address] Pita Cha CRNP [address] [place] [address] Jamie Non Stress Tests [facility] [address] [place] [address] Scheduled Orders Name Type Priority Associated Diagnoses [...] antepartum documented in this encounter Care Teams Justice Professor Relationship Specialty Start Date End Date Chapo Boyce DO [address] [place] [address] PCP - General Family Medicine 03/26/20 documented as of this encounter
--- OUTSIDE RECORDS SUMMARY | 2023-05-23 11:25 | External Medical Summary | Summary of Care ---
Author Name Unknown Organization [facility] Address [address] [place] [place] [place] [address] Phone [phone] Care Team Providers Care Propellant Charge Zone Assembler Name Role Phone Carli Chapo Vitalger Primary Care Provider Reason for Visit * Reason Comments Return Visit Encounter Details Date Type Department Care Team (Late st Contact Info) Description 04/20/2023 9:15 AM EST Office Visit Gynecology/Obstetric s [facility] [address] [place] [address] Rosey Duong PA-C [address] [place] [address] High-risk in third trimester*; Multigravida of advanced [...] as of this encounter (statuses as of 04/20/2023) Medications Medication Sig Dispensed Refills Start Date [...] as of this encounter (statuses as of 04/20/2023) Active Problems Problem Noted Date Diagnosed Date [...] as of this encounter (statuses as of 04/20/2023) Resolved Problems Problem Noted Date Diagnosed Date [...] Recommend nutrition consult with RDN (Registered Dietitian Financial Compliance Examiner). Lifestyle changes are also indicated including optimizing [...] as of this encounter (statuses as of 04/20/2023) Immunizations Name Administration Dates Next Due COVID-19 mRNA, LNP-s, No Pre serve, 2-Dose Series (Frolik) 05/14/2020,04/16/2020 Seasonal Influenza, PF, 6 M & [...] money to get more. Never true 10/02/2022 [place] Depression Scale Answer Date Recorded [place] Depression Scale Total 8 04/06/2023 The thought [...] Sign Reading Time Taken Comments Blood Pressure 100/72 04/20/2023 8:50 AM EST Pulse - - Temperature - - Respiratory Rate - - Oxygen Saturation - - Inhaled Oxygen Concentration - - Weight 87.5 kg (193 lb) 04/20/2023 8:50 AM EST Height 154.9 cm (5' 1") 04/20/2023 8:50 AM EST Body Mass Index 36.47 04/20/2023 8:50 AM EST documented in this encounter Progress Notes * Rosey Duong PA-C - 04/20/2023 8:57 AM EST 36w0d Vertex by ultrasound today. Plans . Going to got to [facility] for iron level, repeat CBC today. GBS collected. Negative in prior . Denies bleeding, leaking, contractions. Pos FM. RTC in 1 week Rosey Duong PA-C documented in this encounter Nursing Notes * Linda Nieves LPN - 04/20/2023 8:52 AM EST 36w0d US today- vertex. GBS today. documented in this encounter Plan of Treatment Upcoming Encounters Date Type Department Care Team (Late st Contact Info) Description 04/27/2023 9:15 AM EST Office Visit Gynecology/Obstetrics [facility] [address] [place] [address] Rosey Duong PA-C [address] [place] [address] 05/04/2023 9:15 AM EST Office Visit Gynecology/Obstetrics [facility] [address] [place] [address] Rosey Duong PA-C [address] [place] [address] 05/11/2023 9:15 AM EST Office Visit Gynecology/Obstetrics [facility] [address] [place] [address] Rosey Duong PA-C [address] [place] [address] 05/18/2023 9:15 AM EDT Office Visit Gynecology/Obstetrics [facility] [address] [place] [address] Rosey Duong PA-C [address] [place] [address] Pending Results Name Type Priority Associated Diagnoses Date /Time GROUP B STREP CULTURE/PCR Lab Routine High-risk in third trimester 04/20/2023 9:15 AM EST Health Maintenance Due Date Last [...] antepartum documented in this encounter Care Teams Propellant Charge Zone Assembler Relationship Specialty Start Date End Date Chapo Boyce DO [address] [place] [address] PCP - General Family Medicine 03/26/20 documented as of this encounter
--- OUTSIDE RECORDS SUMMARY | 2023-05-23 11:26 | External Medical Summary | Summary of Care ---
Author Name Unknown Organization [facility] Address [address] [facility] [address] Phone [phone] Care Team Providers Care Machine Puller Name Role Phone Carli Chapoharris Pineda DO Primary Care Provider Encounter Details Date Type Department Care Team (Late st Contact Info) Description 03/23/2023 Orders Only PATIENT PORTAL DO NOT DELETE THIS DEPT USED BY [place] [id number] Allergies Active Allergy Reactions Criticality Noted Date Comments Cinnamon 11/12/2019 [place] Flavor 11/12/2019 Nickel 11/12/2019 Nsaids Abdominal pain 11/12/2019 (can use in low doses) documented as of this encounter (statuses as of 03/23/2023) Medications Medication Sig Dispensed Refills Start Date [...] Active Sertraline HCl 50 MG Oral Tablet (Zoloft)Indications:D epression complicating , antepartum Take 0.5 Tablets by mouth in the morning. For 2 weeks, then increase to 1 tab (50 mg) daily.. 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 Lifestyle changes are also indicated including optimizing [...] as of this encounter (statuses as of 03/23/2023) Immunizations Name Administration Dates Next Due COVID-19 mRNA, LNP-s, No Pre serve, 2-Dose Series (Jpwholesale) 05/14/2020,04/16/2020 Seasonal Influenza, PF, 6 M & [...] money to get more. Never true 10/02/2022 [place] Depression Scale Answer Date Recorded [place] Depression Scale Total 10 03/02/2023 The thought of harming myself has occurred to me . Never 03/02/2023 Estimated Date of Delivery Comme nts Yes [...] Care Team (Late st Contact Info) Description 04/06/2023 11:30 AM EST Office Visit Gynecology/Obstetrics [facility] [address] [place] [address] Rosey Duong PA-C [address] [place] [address] 04/20/2023 9:15 AM EST Office Visit Gynecology/Obstetrics [facility] [address] [place] [address] Rosey Duong PA-C [address] [place] [address] 04/27/2023 9:15 AM EST Office Visit Gynecology/Obstetrics [facility] [address] [place] [address] Rosey Duong PA-C [address] [place] [address] 05/04/2023 9:15 AM EST Office Visit Gynecology/Obstetrics [facility] [address] [place] [address] Rosey Duong PA-C [address] [place] [address] 05/11/2023 9:15 AM EST Office Visit Gynecology/Obstetrics [facility] [address] [place] [address] Rosey Duong PA-C [address] [place] [address] 05/18/2023 9:15 AM EDT Office Visit Gynecology/Obstetrics [facility] [address] [place] [address] Rosey Duong PA-C [address] [place] [address] Health Maintenance Due Date Last Done Comments Diabetes Screening 1985 Hepatitis B (1 of 3 - 3-dose series) 1985 Depression Screening 1997 COVID-19 Vaccine (3 - 2022-2 4 season) [...] filedocumented as of this encounter Care Teams Machine Puller Relationship Specialty Start Date End Date Chapo Boyce DO [address] [place] [address] PCP - General Family Medicine 03/26/20 documented as of this encounter
--- OUTSIDE RECORDS SUMMARY | 2023-05-23 11:26 | External Medical Summary | Summary of Care ---
Author Name Unknown Organization [facility] Address [address] [facility] [address] Phone [phone] Care Team Providers Care Cook Enchilada Name Role Phone aCrli Chapo Vitalger Primary Care Provider Reason for Visit * Reason Comments Return Visit Encounter Details Date Type Department Care Team (Late st Contact Info) Description 04/06/2023 11:30 AM EST Office Visit Gynecology/Obstetric s [facility] [address] [place] [address] Rosey Duong PA-C [address] [place] [address] High-risk in third trimester*; Multigravida of advanced maternal age in third trimester; History of gestational diabetes mellitus (GDM); Obesity, Class I, BMI 30.0-34.9 (see actual BMI); History of ; Depression complicating , antepartum; Antepartum anemia complicating Allergies Active Allergy Reactions Criticality Noted Date Comments Cinnamon 11/12/2019 [place] Flavor 11/12/2019 Nickel 11/12/2019 Nsaids Abdominal pain 11/12/2019 (can use in low doses) documented as of this encounter (statuses as of 04/06/2023) Medications Medication Sig Dispensed Refills Start Date [...] daily while 1 Each 0 04/06/2023 Active documented as of this encounter (statuses as of 04/06/2023) Active Problems Problem Noted Date Diagnosed Date [...] as of this encounter (statuses as of 04/06/2023) Resolved Problems Problem Noted Date Diagnosed Date [...] Recommend nutrition consult with RDN (Registered Dietitian Fireproof Door Assembler). Lifestyle changes are also indicated including optimizing [...] as of this encounter (statuses as of 04/06/2023) Immunizations Name Administration Dates Next Due COVID-19 mRNA, LNP-s, No Pre serve, 2-Dose Series (Rocket Relief) 05/14/2020,04/16/2020 Seasonal Influenza, PF, 6 M & [...] money to get more. Never true 10/02/2022 [place] Depression Scale Answer Date Recorded [place] Depression Scale Total 8 04/06/2023 The thought [...] Sign Reading Time Taken Comments Blood Pressure 110/64 04/06/2023 11:28 AM EST Pulse - - Temperature - - Respiratory Rate - - Oxygen Saturation - - Inhaled Oxygen Concentration - - Weight 86.3 kg (190 lb 3.2 oz) 04/06/2023 11:28 AM EST Height - - Body Mass Index 35.94 03/21/2023 4:10 PM EST documented in this encounter Progress Notes * Rosey Duong PA-C - 04/06/2023 11:46 AM EST 34w0d Feels baby is flipping position still. US with next visit for position check. Given order for breast pump. Will repeat CBC, plans to take to [facility] and given order. Reports BH contractions. Doesn't feel true contractions. Her BH are uncomfortable. Increased discharge into underwear over last week. No large gush. Comes and goes, does wear mery-pad and will be damp. Denies vaginal itching, burning or irritation. Pelvic exam: External genitalia and vagina anatomy within normal limits, No significant vulvar lesions, No significant vaginal discharge, Cervix normal in appearance without lesions or purulent discharge, cervix visually closed, no pooling at cervical os and no blood in vaginal vault. Nitrazine test negative. Piano Tuner Documentation Provider requested hvac lead. Name of hvac lead: SIMON Fox RTC in 2 weeks GBS with next visit Rosey Duong PA-C documented in this encounter Nursing Notes * Dominique Blanco RN - 04/06/2023 11:29 AM EST Patient here for ANDREA 34w0d Having some contractions Some increase in discharge Would like breast pump rx Labor instructions given Dominique Blanco RN documented in this encounter Plan of Treatment Upcoming Encounters Date Type Department Care Team (Late st Contact Info) Description 04/20/2023 8:15 AM EST Imaging Radiology [facility] [address] [place] [address] 04/20/2023 9:15 AM EST Office Visit Gynecology/Obstetrics [facility] [address] [place] [address] Rosey Duong PA-C [address] [place] [address] 04/27/2023 9:15 AM EST Office Visit Gynecology/Obstetrics [facility] [address] [place] [address] Rosey Duong PA-C [address] [place] [address] 05/04/2023 9:15 AM EST Office Visit Gynecology/Obstetrics [facility] [address] [place] [address] Rosey Duong PA-C [address] [place] [address] 05/11/2023 9:15 AM EST Office Visit Gynecology/Obstetrics [facility] [address] [place] [address] Rosey Duong PA-C [address] [place] [address] 05/18/2023 9:15 AM EDT Office Visit Gynecology/Obstetrics [facility] [address] [place] [address] Rosey Duong PA-C [address] [place] [address] Scheduled Orders Name Type Priority Associated Diagnoses Orde r Schedule US PREG LIMITED 1 OR MORE FETUSES Medical Imaging Routine High-risk in third trimester Expected: 04/20/2023, Expires: 05/04/2024 CBC WITH WBC DIFFERENTIAL AND ANEMIA REFLEX WORKUP Lab Routine Antepartum anemia complicating Expected: 04/06/2023, Expires: 04/06/2024 Health Maintenance Due Date Last Done Comments [...] , antepartum Mental disorders of mother, antepartum Antepartum anemia complicating Anemia, antepartum documented in this encounter Care Teams Cook Enchilada Relationship Specialty Start Date End Date Chapo Boyce DO [address] [place] [address] PCP - General Family Medicine 03/26/20 documented as of this encounter
--- OUTSIDE RECORDS SUMMARY | 2023-05-23 11:26 | External Medical Summary | Summary of Care ---
Author Name Unknown Organization [facility] Address [address] [place] [address] Phone [phone] Care Team Providers Care Hydroelectric Systems Technician Name Role Phone CarliChapo Primary Care Provider Reason for Visit * Reason Comments Return Visit Encounter Details Date Type Department Care Team (Late st Contact Info) Description 03/21/2023 4:15 PM EST Office Visit Gynecology/Obstetric s [facility] [address] [facility] [place] [address] Carmen Vaughn MD [address] [facility] [place] [id number] 31 weeks gestation of *; High-risk in third trimester; History of ; History of gestational diabetes mellitus (GDM); Multigravida of advanced maternal age in third trimester; Obesity, Class I, BMI 30.0-34.9 (see actual BMI); Depression complicating , antepartum Allergies Active Allergy Reactions Criticality Noted Date Comments Cinnamon 11/12/2019 [place] Flavor 11/12/2019 Nickel 11/12/2019 Nsaids Abdominal pain 11/12/2019 (can use in low doses) documented as of this encounter (statuses as of 03/22/2023) Medications Medication Sig Dispensed Refills Start Date [...] as of this encounter (statuses as of 03/22/2023) Active Problems Problem Noted Date Diagnosed Date [...] as of this encounter (statuses as of 03/22/2023) Resolved Problems Problem Noted Date Diagnosed Date [...] Recommend nutrition consult with RDN (Registered Dietitian Stars Coordinator). Lifestyle changes are also indicated including optimizing [...] as of this encounter (statuses as of 03/22/2023) Immunizations Name Administration Dates Next Due COVID-19 mRNA, LNP-s, No Pre serve, 2-Dose Series (EnChroma) 05/14/2020,04/16/2020 Seasonal Influenza, PF, 6 M & [...] money to get more. Never true 10/02/2022 [place] Depression Scale Answer Date Recorded [place] Depression Scale Total 10 03/02/2023 The thought [...] Sign Reading Time Taken Comments Blood Pressure 112/68 03/21/2023 4:10 PM EST Pulse - - Temperature - - Respiratory Rate - - Oxygen Saturation - - Inhaled Oxygen Concentration - - Weight 86.8 kg (191 lb 6.4 oz) 03/21/2023 4:10 P M EST Height 154.9 cm (5' 1") 03/21/2023 4:10 PM EST Body Mass Index 36.16 03/21/2023 4:10 PM EST documented in this encounter Progress Notes * Carmen Vaughn MD - 03/21/2023 4:15 PM EST Patient is 38 year old at 31 5/7 weeks who presents for ANDREA visit Denies contractions, leaking of fluid, or vaginal bleeding. Noted good movement. Cedrick Mendez. Denies blurry vision, RUQ or epigastric pain. Sinus headaches. Wondering if baby flipped Desires TOLAC Problem list reviewed BP 112/68 | Ht 1.549 m (5' 1") | Wt 86.8 kg (191 lb 6.4 oz) | LMP 08/11/2022 (Exact Date) | BMI 36.16 kg/m | BSA 1.93 m FH: 31 FHT: 145 Plan: Labor and preeclampsia warnings reviewed Flu vaccine 12/05/2022 RSV vaccine (32-36 08/09) recommended CBC pended RTC 2 weeks V Johana CLARK PhD documented in this encounter Nursing Notes * Dominique Blanco RN - 03/21/2023 4:12 PM EST Patient here for ANDREA 31w5d + FM Had episode of leaking last week - thin liquid , has since stopped Denies bleeding + cedrick mendez contractions documented in this encounter Plan of Treatment Upcoming Encounters Date Type Department Care Team (Late st Contact Info) Description 04/06/2023 11:30 AM EST [facility] [address] [place] [address] Rosey Duong PA-C [address] [place] [address] 04/20/2023 9:15 AM EST [facility] [address] [place] [address] Rosey Duong PA-C [address] [place] [address] 04/27/2023 9:15 AM EST Office Visit Gynecology/Obstetrics [facility] [address] [place] [address] Rosey Duong PA-C [address] [place] [address] 05/04/2023 9:15 AM EST Office Visit Gynecology/Obstetrics [facility] [address] [place] [address] Rosey Duong PA-C [address] [place] [address] 05/11/2023 9:15 AM EST Office Visit Gynecology/Obstetrics [facility] [address] [place] [address] Rosey Duong PA-C [address] [place] [address] 05/18/2023 9:15 AM EDT Office Visit Gynecology/Obstetrics [facility] [address] [place] [address] Rosey Duong PA-C [address] [place] [address] Scheduled Orders Name Type Priority Associated Diagnoses Orde r Schedule CBC Lab Routine 31 weeks gestation of Expected: 04/04/2023, Expires: 03/21/2024 Health Maintenance Due Date Last Done Comments [...] as of this encounter Visit Diagnoses Diagnosis 31 weeks gestation of - Primary state, incidental High-risk in third trimester History of Other postprocedural status History of gestational diabetes mellitus (GDM) Multigravida of advanced maternal age in third trimester Obesity, Class I, BMI 30.0-34.9 (see actual BMI) Obesity, unspecified Depression complicating , antepartum Mental disorders of mother, antepartum documented in this encounter Care Teams Hydroelectric Systems Technician Relationship Specialty Start Date End Date Chapo Boyce DO [address] [place] [address] PCP - General Family Medicine 03/26/20 documented as of this encounter
--- OUTSIDE RECORDS SUMMARY | 2023-05-23 11:26 | External Medical Summary | Summary of Care ---
Author Name Unknown Organization [facility] Address [address] [place] [address] Phone [phone] Care Team Providers Care Wrong Address Clerk Name Role Phone CarliChapo Primary Care Provider Reason for Visit * Reason Onset Date Comments Test Results 03/02/2023 Encounter Details Date Type Department Care Team (Late st Contact Info) Description 03/02/2023 Telephone Gynecology/Obstetrics [facility] [address] [place] [address] Rosey Duong PA-C [address] [place] [address] Test Results Allergies Active Allergy Reactions Criticality Noted Date Comments Cinnamon 11/12/2019 [place] Flavor 11/12/2019 Nickel 11/12/2019 Nsaids Abdominal pain 11/12/2019 (can use in low doses) documented as of this encounter (statuses as of 03/02/2023) Medications Medication Sig Dispensed Refills Start Date [...] as of this encounter (statuses as of 03/02/2023) Active Problems Problem Noted Date Diagnosed Date [...] as of this encounter (statuses as of 03/02/2023) Resolved Problems Problem Noted Date Diagnosed Date [...] Recommend nutrition consult with RDN (Registered Dietitian Coat Room Attendant). Lifestyle changes are also indicated including optimizing [...] as of this encounter (statuses as of 03/02/2023) Immunizations Name Administration Dates Next Due COVID-19 mRNA, LNP-s, No Pre serve, 2-Dose Series ([employer]) 05/14/2020,04/16/2020 Seasonal Influenza, PF, 6 M & [...] money to get more. Never true 10/02/2022 [place] Depression Scale Answer Date Recorded [place] Depression Scale Total 10 03/02/2023 The thought [...] Description 03/21/2023 4:15 PM EST Office Visit Gynecology/Obstetrics [facility] [address] [place] [address] Carmen Vaughn MD [address] [place] [address] [place] [address] 04/06/2023 11:30 AM EST Office Visit Gynecology/Obstetrics [facility] [address] [place] [address] Rosey Duong PA-C [address] [place] [address] 04/20/2023 9:15 AM EST Office Visit Gynecology/Obstetrics [facility] [address] [place] [address] Rosey Duong PA-C [address] [place] [address] 04/27/2023 9:15 AM EST Office Visit Gynecology/Obstetrics [facility] [address] [place] [address] Rosey Duong PA-C [address] [place] [address] 05/04/2023 9:15 AM EST Office Visit Gynecology/Obstetrics [facility] [address] [place] [address] Rosey Duong PA-C [address] [place] [address] 05/11/2023 9:15 AM EST Office Visit Gynecology/Obstetrics [facility] [address] [place] [address] Rosey Duong PA-C [address] [place] [address] 05/18/2023 9:15 AM EDT Office Visit Gynecology/Obstetrics [facility] [address] [place] [address] Rosey Duong PA-C [address] [place] [address] Health Maintenance Due Date Last Done Comments [...] filedocumented as of this encounter Care Teams Wrong Address Clerk Relationship Specialty Start Date End Date Chapo Boyce DO [address] [address] PCP - General Family Medicine 03/26/20 documented as of this encounter
--- OUTSIDE RECORDS SUMMARY | 2023-05-23 11:26 | External Medical Summary ---
Author Name Unknown Address Unknown Organization K01:[facility] [place] [facility] [address] [facility] [address] Laboratory Report Ordering Provider Test Date Status BRANDY GALEANO 04/20/2023 09:15:18 Final Observation Date Value Abnormality Reference (Units ) Status Streptococcus agalactiae DNA [Presence] in Specimen by CELIA with probe detection 04/20/2023 09:15:18 Negative Negative Final No Group B Streptococcus det ected by culture-enhanced PCR (amplified probe).
The collection of vaginal/rectal swab specimen combinations (FDA approved specimen type) is optimal for the detection of Group B Streptococcus. Single source collection (vaginal only or rectal only) or alternate specimen sources may lead to false negative results. Performing Location [facility] [place] [address] [facility] [place] [address]
--- OUTSIDE RECORDS SUMMARY | 2023-05-23 11:26 | External Medical Summary | Summary of Care ---
Author Name Unknown Organization [facility] Address [address] [place] [address] Phone [phone] Care Team Providers Care Office Workforce Planner Name Role Phone Carli Chapoharris Pineda Primary Care Provider Reason for Visit * Reason Comments Return Visit Encounter Details Date Type Department Care Team (Late st Contact Info) Description 02/05/2023 8:45 AM EST Office Visit Gynecology/Obstetric s [facility] [address] [place] [address] Rohan Soni MD [address] [place] [address] Multigravida of advanced maternal age in third trimester*; History of gestational diabetes mellitus (GDM); Obesity, Class I, BMI 30.0-34.9 (see actual BMI); History of ; Depression complicating , antepartum; High-risk in third trimester Allergies Active Allergy Reactions Criticality Noted Date Comments Cinnamon 11/12/2019 [place] Flavor 11/12/2019 Nickel 11/12/2019 Nsaids Abdominal pain 11/12/2019 (can use in low doses) documented as of this encounter (statuses as of 02/05/2023) Medications Medication Sig Dispensed Refills Start Date End Date Status Pre-Bridget Formula Oral Tablet Take 1 Tablet by mouth in the morning. 0 Active Breast Pump Use as directed 1 Each 0 12/23/2020 Active Unisom Sleepgels 50 MG Oral Capsule (diphenhydrAMINE HCl (Sleep)) Take by mouth. 0 Active DHA 200 MG Oral Capsule Take by mouth. 0 Active documented as of this encounter (statuses as of 02/05/2023) Active Problems Problem Noted Date Diagnosed Date [...] as of this encounter (statuses as of 02/05/2023) Resolved Problems Problem Noted Date Diagnosed Date [...] Recommend nutrition consult with RDN (Registered Dietitian Paint Prepper). Lifestyle changes are also indicated including optimizing [...] as of this encounter (statuses as of 02/05/2023) Immunizations Name Administration Dates Next Due COVID-19 mRNA, LNP-s, No Pre serve, 2-Dose Series ([employer]) 05/14/2020,04/16/2020 SEASONAL INFLUENZA, PF, 6 M & Above, IM , (FLULAVAL or FLUZONE) 12/05/2022,12/08/2020 TDAP (age 10 and older)(Boostrix) 12/08/2020 documented as of this encounter Social History [...] money to get more. Never true 10/02/2022 [place] Depression Scale Answer Date Recorded [place] Depression Scale Total 10 10/03/2022 The thought of harming myself has occurred to me . Never 10/03/2022 Estimated Date of Delivery Comme nts Yes [...] Sign Reading Time Taken Comments Blood Pressure 122/68 02/05/2023 8:34 AM EST Pulse - - Temperature - - Respiratory Rate - - Oxygen Saturation - - Inhaled Oxygen Concentration - - Weight 83.9 kg (185 lb) 02/05/2023 8:34 AM EST Height 154.9 cm (5' 1") 02/05/2023 8:34 AM EST Body Mass Index 34.96 02/05/2023 8:34 AM EST documented in this encounter Progress Notes * Rohan Soni MD - 02/05/2023 8:57 AM EST Met patient refers time in this . Patient is a process resection after a failed home delivery attempt. Patient is here to discuss . Prior c/s discussed I have made it clear to patient she can not attempt a from home. I reviewed with the patient risks of a (even if previously successful) for uterine rupture which may lead to adverse events to include maternal +/- , hypoxia leading to brain injury or cerbral palsy, need for emergent c/s requiring hysterectomy. Possible need for transfusion. I reviewed that this could occur 0.5-1%.Patient is aware that after 2 c-sections it is suggested for repeat c/section . She is aware that with each c/section the risk for uterine rupture increases. Pt states understanding and wishes to proceed with . * Linda Nieves LPN - 02/05/2023 8:37 AM EST 25w3d Discuss TOLAC. documented in this encounter Plan of Treatment Upcoming Encounters Date Type Department Care Team (Late st Contact Info) Description 03/02/2023 11:30 AM EST Office Visit Gynecology/Obstetrics [facility] [address] [place] [address] Rosey Duong PA-C [address] [place] [address] Scheduled Orders Name Type Priority Associated Diagnoses Orde r Schedule 50-G GESTATIONAL GLUCOSE, 1 HOUR Lab Routine Multigravida of advanced maternal age in third trimester Expected: 03/08/2023 (Approximate), Expires: 02/06/2024 CBC WITH WBC DIFFERENTIAL AND ANEMIA REFLEX WORKUP Lab Routine Multigravida of advanced maternal age in third trimester Expected: 03/08/2023 (Approximate), Expires: 02/06/2024 SYPHILIS ANTIBODY SCREEN WITH REFLEX TO RPR Lab Routine Multigravida of advanced maternal age in third trimester Expected: 03/08/2023 (Approximate), Expires: 02/06/2024 Health Maintenance Due Date Last Done Comments Diabetes Screening 1985 Hepatitis B (1 of 3 - 3-dose series) 1985 Depression Screening 1997 COVID-19 Vaccine (2 4 season) 2022 05/14/2020, 04/16/2020 Pap Smear 10/03/2025 10/03/2022, 01/26/2020, 01/26/2020 Cervical Cancer Screening 10/04/2027 HPV/Co-Test 10/04/2027 10/03/2022 DTaP,Tdap,and Td Vaccines (2 - Td or Tdap) 12/08/2030 12/08/2020 Influenza Vaccine (FLU shot) Completed 05/2022, [...] trimester documented in this encounter Care Teams Office Workforce Planner Relationship Specialty Start Date End Date Chapo Boyce DO [address] [place] [address] PCP - General Family Medicine 03/26/20 documented as of this encounter
--- OUTSIDE RECORDS SUMMARY | 2023-05-23 11:26 | External Medical Summary | Summary of Care ---
Author Name Unknown Organization [facility] Address [address] [place] [address] Phone [phone] Care Team Providers Care Rug Setter [place] Name Role Phone Carli Chapoharris Pnieda Primary Care Provider Reason for Visit * Reason Comments Return Visit Encounter Details Date Type Department Care Team (Late st Contact Info) Description 03/02/2023 11:30 AM EST Office Visit Gynecology/Obstetric s [facility] [address] [place] [address] Rosey Duong PA-C [address] [place] [address] High-risk in third trimester*; Multigravida of advanced maternal age in third trimester; History of gestational diabetes mellitus (GDM); Obesity, Class I, BMI 30.0-34.9 (see actual BMI); History of ; Depression complicating , antepartum Allergies Active Allergy Reactions Criticality Noted Date Comments Cinnamon 11/12/2019 [place] Flavor 11/12/2019 Nickel 11/12/2019 Nsaids Abdominal pain [...] Recommend nutrition consult with RDN (Registered Dietitian Social Service Worker). Lifestyle changes are also indicated including optimizing [...] mRNA, LNP-s, No Pre serve, 2-Dose Series ([employer]) 05/14/2020,04/16/2020 Seasonal Influenza, PF, 6 M & [...] money to get more. Never true 10/02/2022 [place] Depression Scale Answer Date Recorded [place] Depression Scale Total 10 03/02/2023 The thought [...] Sign Reading Time Taken Comments Blood Pressure 106/62 03/02/2023 11:26 AM EST Pulse - - Temperature - - Respiratory Rate - - Oxygen Saturation - - Inhaled Oxygen Concentration - - Weight 85.3 kg (188 lb) 03/02/2023 11:26 AM EST Height 154.9 cm (5' 1") 03/02/2023 11:26 AM EST Body Mass Index 35.52 03/02/2023 11:26 AM EST documented in this encounter Progress Notes * Rosey Duong PA-C - 03/02/2023 12:19 PM EST 29w0d Completed labs through [facility]. Hgb 11.7, passed 1 hour gtt. Advised increase iron in diet, plan repeat lab in about 4 weeks. Has been struggling with increase anxiety, would like to restart Sertraline. On in the past and didwell on it. Discussed starting low dose 25 mg daily x 2 weeks, increase to 50 mg daily. Advised stop if any SI/HI. Denies bleeding, leaking, contractions. Pos fm. RTC in 2 weeks Rosey Duong PA-C * Linda Nieves LPN - 03/02/2023 11:30 AM EST 29w0d Dizzy when bending over or getting close to the ground. Has not received labs other than CBC from [facility]. documented in this encounter Nursing Notes * Linda Nieves LPN - 03/02/2023 11:56 AM EST Patient here for tdap injection. Patient doing well no complaints. Injection given IM as ordered. Patient tolerated well. Patient to follow up as directed. Patient instructed to call if any complications. Patient verbalized understanding of instructions given and her follow up appt for ANDREA. Injection site: Right Deltoid Medication Source: Dispensed stock medication documented in this encounter Plan of Treatment Upcoming Encounters Date Type Department Care Team (Late st Contact Info) Description 03/21/2023 4:15 PM EST Office Visit Gynecology/Obstetrics [facility] [address] [place] [address] Carmen Vaughn MD [address] [place] [address] [place] [address] 04/06/2023 11:30 AM EST Office Visit Gynecology/Obstetrics [facility] [address] [place] [address] Rosey Duong PA-C [address] [place] [address] 04/20/2023 9:15 AM EST Office Visit Gynecology/Obstetrics [facility] [address] [place] [address] Rosey Duong PA-C [address] [place] [address] 04/27/2023 9:15 AM EST Office Visit Gynecology/Obstetrics [facility] [address] [place] [address] Rosey Duong PA-C [address] [place] [address] 05/04/2023 9:15 AM EST Office Visit Gynecology/Obstetrics [facility] [address] [place] [address] Rosey Duong PA-C [address] [place] [address] 05/11/2023 9:15 AM EST Office Visit Gynecology/Obstetrics [facility] [address] [place] [address] Rosey Duong PA-C [address] [place] [address] 05/18/2023 9:15 AM EDT Office Visit Gynecology/Obstetrics [facility] [address] [place] [address] Rosey Duong PA-C [address] [place] [address] Health Maintenance Due Date Last Done Comments Diabetes Screening 1985 Hepatitis B (1 of 3 - 3-dose series) 1985 Depression Screening 1997 COVID-19 Vaccine (2022-2 4 season) 2022 05/14/2020, [...] antepartum documented in this encounter Care Teams Rug Setter [place] Relationship Specialty Start Date End Date Chapo Boyce DO [address] [place] [address] PCP - General Family Medicine 03/26/20 documented as of this encounter
--- OUTSIDE RECORDS SUMMARY | 2023-05-23 11:26 | External Medical Summary | Summary of Care ---
Author Name Unknown Organization [facility] Address [address] [place] [place] [address] Phone [phone] Care Team Providers Care Creative Services Specialist Name Role Phone Carli Chapo Vitalger Primary Care Provider Reason for Visit * Reason Comments Return Visit Encounter Details Date Type Department Care Team (Late st Contact Info) Description 04/20/2023 9:15 AM EST Office Visit Gynecology/Obstetric s [facility] [address] [place] [address] Rosey Duong PA-C [address] [place] [address] High-risk in third trimester*; Multigravida of advanced [...] Recommend nutrition consult with RDN (Registered Dietitian Carry Out Clerk). Lifestyle changes are also indicated including [...] mRNA, LNP-s, No Pre serve, 2-Dose Series ([employer]) 05/14/2020,04/16/2020 Seasonal Influenza, PF, 6 M & [...] money to get more. Never true 10/02/2022 [place] Depression Scale Answer Date Recorded [place] Depression Scale Total 8 04/06/2023 The thought [...] [facility] [address] [place] [address] Rosey Duong PA-C [address] [place] [address] 05/04/2023 9:15 AM EST Office Visit Gynecology/Obstetrics [facility] [address] [place] [address] Rosey Duong PA-C [address] [place] [address] 05/11/2023 9:15 AM EST Office Visit Gynecology/Obstetrics [facility] [address] [place] [address] oRsey Duong PA-C [address] [place] [address] 05/18/2023 9:15 AM EDT Office Visit Gynecology/Obstetrics [facility] [address] [place] [address] Rosey Duong PA-C [address] [place] [address] Pending Results Name Type Priority Associated Diagnoses [...] antepartum documented in this encounter Care Teams Creative Services Specialist Relationship Specialty Start Date End Date Chapo Boyce DO [address] [place] [address] PCP - General Family Medicine 03/26/20 documented as of this encounter
--- OUTSIDE RECORDS SUMMARY | 2023-05-23 11:26 | External Medical Summary | Summary of Care ---
Author Name Unknown Organization [facility] Address [address] [facility] [address] Phone [phone] Care Team Providers Care Locker Room Supervisor Name Role Phone Chapo Boyce Edwin Primary Care Provider Encounter Details Date Type Department Care Team (Late st Contact Info) Description 02/28/2023 Orders Only Gynecology/Obstetrics [facility] [address] [place] [address] Rohan Soni MD [address] [place] [address] Allergies Active Allergy Reactions Criticality Noted Date Comments Cinnamon 11/12/2019 [place] Flavor 11/12/2019 Nickel 11/12/2019 Nsaids Abdominal pain 11/12/2019 (can use in low doses) documented as of this encounter (statuses as of 02/28/2023) Medications Medication Sig Dispensed Refills Start Date [...] as of this encounter (statuses as of 02/28/2023) Active Problems Problem Noted Date Diagnosed Date [...] as of this encounter (statuses as of 02/28/2023) Resolved Problems Problem Noted Date Diagnosed Date [...] Recommend nutrition consult with RDN (Registered Dietitian Clinical Research Associate). Lifestyle changes are also indicated including optimizing [...] as of this encounter (statuses as of 02/28/2023) Immunizations Name Administration Dates Next Due COVID-19 mRNA, LNP-s, No Pre serve, 2-Dose Series ([employer]) 05/14/2020,04/16/2020 Seasonal Influenza, PF, 6 M & above, IM , (FluLaval or Fluzone) 12/05/2022,12/08/2020 TDAP (age 10 and older)(Boostrix) 12/08/2020 [...] money to get more. Never true 10/02/2022 [place] Depression Scale Answer Date Recorded [place] Depression Scale Total 10 10/03/2022 The thought [...] 03/02/2023 11:30 AM EST Office Visit Gynecology/Obstetrics [facility] [address] [place] [address] Rosey Duong PA-C [address] [place] [address] Health Maintenance Due Date Last Done Comments [...] Not on filedocumented as of this encounter Procedures Procedure Name Priority Date/Time Associated Diagnosis Comments CHEMISTRY-OUTSIDE Routine 02/23/2023 documented in this encounter Results * CHEMISTRY-OUTSIDE (02/23/2023) Not all results display below - see scan for full detail OUTSIDE LAB (SEE SCANNED REPORT) Comment:SCAN INCL: GLUC GEST , CBCD, IRON PANEL, FERRITIN, RPR CREATININE-OUTSID E LAB OUTSIDE LAB (SEE SCANNED REPORT) EGFR-OUTSIDE LAB OUT SIDE LAB (SEE SCANNED REPORT) POTASSIUM-OUTSIDE LAB OUTSIDE LAB (SEE SCANNED REPORT) GLUCOSE-OUTSIDE LAB OUTSIDE LAB (SEE SCANNED REPORT) HOURS FASTING OUTSID E LAB (SEE SCANNED REPORT) TRIGLYCERIDES-OUT SIDE LAB OUTSIDE LAB (SEE SCANNED REPORT) CHOLESTEROL-OUTSI DE LAB OUTSIDE LAB (SEE SCANNED REPORT) HDL-OUTSIDE LAB OUTS CHAR LAB (SEE SCANNED REPORT) CHOL/HDL RATIO-OUTSIDE LAB OUTSIDE LA B (SEE SCANNED REPORT) LDL (CALCULATED)-OUTS CHAR LAB OUTSIDE LAB (SEE SCANNED REPORT) LDL (DIRECT MEASURE)-OUTSIDE LAB OUTSIDE LAB (SEE SCANNED REPORT) HEMOGLOBIN, [id number] LAB OUTSIDE LAB (SEE SCANNED REPORT) PHOSPHORUS-OUTSID E LAB OUTSIDE LAB (SEE SCANNED REPORT) PTH-OUTSIDE LAB OUTS CHAR LAB (SEE SCANNED REPORT) MICROALBUMIN RATIO-OUTSIDE LAB OUTSIDE LA B (SEE SCANNED REPORT) PROTEIN, UA-OUTSIDE LAB OUTSIDE LAB (SEE SCANNED REPORT) HEMOGLOBIN-OUTSID E LAB 11.7 11.7 - 15.5 G/DL OUTSIDE LAB (SEE SCANNED REPORT) 02/23/2023 Rohan Soni MD LABORATORY OUTSIDE LAB (SEE SCANNED REPORT) documented in this encounter Care Teams Locker Room Supervisor Relationship Specialty Start Date End Date Chapo Boyce DO [address] [place] [facility] [place] [address] PCP - General Family Medicine 03/26/20 documented as of this encounter
--- OUTSIDE RECORDS SUMMARY | 2023-05-23 11:26 | External Medical Summary | Summary of Care ---
Author Name Unknown Organization [facility] Address [address] [facility] [place] [address] Phone [phone] Care Team Providers Care Part Time Flexible Clerk Name Role Phone Carli Chapo Edwin Primary Care Provider Reason for Visit * Reason Comments Return Visit Encounter Details Date Type Department Care Team (Late st Contact Info) Description 01/05/2023 11:30 AM EDT Office Visit Gynecology/Obstetric s [facility] [address] [place] [address] Kym Bates CRNP [address] [place] [address] High-risk in second trimester*; Multigravida of advanced maternal age in second trimester; History of gestational diabetes mellitus (GDM); Obesity, Class I, BMI 30.0-34.9 (see actual BMI); History of ; Depression complicating , antepartum Allergies Active Allergy Reactions Criticality Noted Date Comments Cinnamon 11/12/2019 [place] Flavor 11/12/2019 Nickel 11/12/2019 Nsaids Abdominal pain 11/12/2019 (can use in low doses) documented as of this encounter (statuses as of 01/05/2023) Medications Medication Sig Dispensed Refills Start Date [...] as of this encounter (statuses as of 01/05/2023) Active Problems Problem Noted Date Diagnosed Date High-risk 10/31/2022 Elderly multigravida 10/03/2022 Overview: Patient will be 38 years old by EDC Counseled on genetic testing. Declines [facility] referral. Low risk NIPT History of gestational [...] as of this encounter (statuses as of 01/05/2023) Resolved Problems Problem Noted Date Diagnosed Date [...] Recommend nutrition consult with RDN (Registered Dietitian Stockkeeper). Lifestyle changes are also indicated including optimizing [...] as of this encounter (statuses as of 01/05/2023) Immunizations Name Administration Dates Next Due COVID-19 mRNA, LNP-s, No Pre serve, 2-Dose Series ([employer]) 05/14/2020,04/16/2020 SEASONAL INFLUENZA, PF, 6 M & [...] money to get more. Never true 10/02/2022 [place] Depression Scale Answer Date Recorded [place] Depression Scale Total 10 10/03/2022 The thought [...] Sign Reading Time Taken Comments Blood Pressure 102/62 01/05/2023 10:17 AM EDT Pulse - - Temperature - - Respiratory Rate - - Oxygen Saturation - - Inhaled Oxygen Concentration - - Weight 84.5 kg (186 lb 3.2 oz) 01/05/2023 10:17 AM EDT Height - - Body Mass Index 35.18 10/03/2022 3:15 PM EDT documented in this encounter Progress Notes * Kym Bates CRNP - 01/05/2023 10:26 AM EDT 21w0d Anatomy scan today, report in process. + movement. No ctx/bleeding. Reviewed OTC medications for heartburn, cold symptoms. Nausea is much better, now only with exertion. Return in 4 weeks. DARIUS Abraham documented in this encounter Nursing Notes * Chey Fischer LPN - 01/05/2023 10:19 AM EDT 21w0d Denies vaginal bleeding/rom + movement Anatomy scan today documented in this encounter Plan of Treatment Upcoming Encounters Date Type Department Care Team (Late st Contact Info) Description 02/05/2023 8:45 AM EST Office Visit Gynecology/Obstetrics [facility] [address] [place] [address] Rohan Soni MD [address] [place] [address] 03/02/2023 11:30 AM EST Office Visit Gynecology/Obstetrics [facility] [address] [place] [address] Rosey Duong PA-C [address] [place] [address] Health Maintenance Due Date Last Done Comments [...] this encounter Visit Diagnoses Diagnosis High-risk in second trimester- Primary Multigravida of advanced maternal age in second trimester History of gestational diabetes mellitus (GDM) Obesity, Class I, BMI 30.0-34.9 (see actual BMI) Obesity, unspecified History of Other postprocedural status Depression complicating , antepartum Mental disorders of mother, antepartum documented in this encounter Care Teams Part Time Flexible Clerk Relationship Specialty Start Date End Date Chapo Boyce DO [address] [place] [address] PCP - General Family Medicine 03/26/20 documented as of this encounter
--- OUTSIDE RECORDS SUMMARY | 2023-05-23 11:26 | External Medical Summary | Summary of Care ---
Author Name Unknown Organization [facility] Address [address] [place] [address] Phone [phone] Care Team Providers Care Cracking Machine Operator Name Role Phone Chapo Boyceger Primary Care Provider Reason for Visit * Reason Comments Return Visit Encounter Details Date Type Department Care Team Description 12/05/2022 Office Visit [facility]cology[facility] [address] [place] [id number] Kym Bates CRNP [address] [place] [id number] High-risk in second trimester*; Multigravida of advanced maternal age in second trimester; History of gestational diabetes mellitus (GDM); Obesity, Class I, BMI 30.0-34.9 (see actual BMI); History of ; Depression complicating , antepartum; Need for influenza vaccination Allergies Active Allergy Reactions Severity Noted Date Comments Cinnamon 11/12/2019 Williams Flavor 11/12/2019 Nickel 11/12/2019 Nsaids Abdominal pain 11/12/2019 (can use in low doses) documented as of this encounter (statuses as of 12/05/2022) Medications Medication Sig Dispensed Refills Start Date [...] as of this encounter (statuses as of 12/05/2022) Active Problems Problem Noted Date High-risk 10/31/2022 Multigravida of advanced maternal age in first trimester 10/03/2022 Overview: Patient will be 38 years old by EDC Counseled on genetic testing. Declines MFM referral. Low risk NIPT History of gestational diabetes mellitus (GDM) 10/03/2022 Overview: Early glucola ordered Obesity, Class I, BMI 30.0-34.9 (see act ual BMI) 10/03/2022 Overview: BMI 32.73 at NOB Early glucola ordered History of 10/03/2022 Overview: Desires TOLAC Depression complicating , antep artum 10/03/2022 History of abnormal cervical Pap smear 0 10/03/2022 Screening for malignant neoplasm of cerv ix 10/03/2022 JACOB (stress urinary incontinence, female ) 10/03/2022 Benign joint hypermobility 06/23/2019 OSWALDO positive 06/23/2019 Sleep disorder Anxiety Estimated Date of Delivery Comme nts Yes 05/18/2023 Based on last me nstrual period of 08/11/2022 (Exact Date) documented as of this encounter (statuses as of 12/05/2022) Resolved Problems Problem Noted Date Resolved Date GDM (gestational diabetes mellitus) [...] Recommend nutrition consult with RDN (Registered Dietitian Test Borer Helper). Lifestyle changes are also indicated including optimizing [...] load 6-8 weeks . Antepartum anemia complicating 02/09/2021 Supervision of other normal 12/06/2020 02/09/2021 Anxiety during 12/06/2020 021 Overview: Zoloft Antepartum multigravida of advanced maternal age 0406/21/2020 02/09/2021 Overview: Low risk NIPT Vitamin D deficiency 06/21/2020 documented as of this encounter (statuses as of 12/05/2022) Immunizations Name Administration Dates Next Due COVID-19 mRNA, LNP-s, No Pre serve, 2-Dose Series ([employer]) 05/14/2020,04/16/2020 SEASONAL INFLUENZA, PF, 6 M & Above, IM , (FLULAVAL or FLUZONE) 12/05/2022,12/08/2020 TDAP (age 10 and older)(Boostrix) 12/08/2020 documented as of this encounter Social History Tobacco Use Types Packs/Day Years Used Date Smoking Tobacco: Never Smokeless Tobacco: Never Alcohol Use Standard Drinks/Week Comments Not Currently 0 (1 standard drink = 0.6 oz pur e alcohol) 1/2 beer a week Alcohol Habits Answer Date Recorded How often do you have a drink containing alcohol ? Monthly or less 06/23/2019 How many drinks containing a lcohol do you have on a typical day when you are drinking? Not asked 06/14/2020 How often do you have six or more drinks on one occasion? Not asked 06/14/2020 Food Insecurity Answer Date Recorded Within the past 12 months, y ou worried that your food would run out before you got money to buy more. Never true 10/02/2022 Within the past 12 months, t he food you bought just didn't last and you didn't have money to get more. Never true 10/02/2022 Estimated Date of Delivery Comme nts Yes 05/18/2023 Based on last me nstrual period of 08/11/2022 (Exact Date) Sex Assigned at Date Recorded Female 10/02/2022 5:37 PM E DT Job Start Date Occupation Industry Not on file Not on file Not on file documented as of this encounter Last Filed Vital Signs Vital Sign Reading Time Taken Comments Blood Pressure 102/62 12/05/2022 11:48 AM EDT Pulse - - Temperature - - Respiratory Rate - - Oxygen Saturation - - Inhaled Oxygen Concentration - - Weight 82.6 kg (182 lb) 12/05/2022 11:48 AM EDT Height - - Body Mass Index 34.39 10/03/2022 3:15 PM EDT documented in this encounter Progress Notes * DARIUS Shabazz - 12/05/2022 12:02 PM EDT 16w4d Still w/nausea, vomits 3-4x/week. Keeping down fluids. Declines other antiemetics. No bleeding/cramping. Starting to feel movement. Discussed MSAFP and role in screening for ONTD; pt accepts, lab requisition given for [facility]. Aware to complete by 22w 6d. Anatomy scan at 20 weeks. Flu shot today. Schedule future visit with LORENZO CLARK to discuss TOLAC. DARIUS Abraham * Chey Fischer LPN - 12/05/2022 11:47 AM EDT 16w4d Denies vaginal bleeding/rom + movement No new concerns Flu shot today documented in this encounter Nursing Notes * Chey Fischer LPN - 12/05/2022 12:06 PM EDT Patient here for flu injection. Patient doing well no complaints. Injection given IM as ordered. Patient tolerated well. Patient to follow up as directed. Patient instructed to call if any complications. Patient verbalized understanding of instructions given. Injection site: Right Deltoid Medication Source: Dispensed stock medication documented in this encounter Plan of Treatment Upcoming Encounters Date Type Specialty Care Team Description 01/02/2023 Imaging Radiology 01/02/2023 Office Visit Gynecology Obstetrics Backer, DARIUS Khan [address] [place] [id number] Scheduled Orders Name Type Priority Associated Diagnoses Orde r Schedule US PREG SINGLE/1ST GEST, 14 WEEKS OR LATER Medical Imaging Routine High-risk in second trimester Expected: 01/05/2023 (Approximate), Expires: 01/06/2024 MATERNAL SERUM AFP Lab Routine High-risk in second trimester Ordered: 12/05/2022 Health Maintenance Due Date Last Done Comments [...] , antepartum Mental disorders of mother, antepartum Need for influenza vaccination Need for prophylactic vaccination and inoculation against influenza documented in this encounter Care Teams Cracking Machine Operator Relationship Specialty Start Date End Date Chapo Boyce DO [address] [address] PCP - General Family Medicine 03/26/20 documented as of this encounter
--- OUTSIDE RECORDS SUMMARY | 2023-05-23 11:26 | External Medical Summary | Summary of Care ---
Author Name Unknown Organization [facility] Address [address] [place] [address] Phone [phone] Care Team Providers Care Blanket Maker Name Role Phone Chapo Boyceger Primary Care Provider Reason for Visit * Reason Comments Return Visit Encounter Details Date Type Department Care Team Description 12/05/2022 [facility] [address] [place] [address] Kym Bates CRNP [address] [place] [address] High-risk in second trimester*; Multigravida of advanced [...] Recommend nutrition consult with RDN (Registered Dietitian Grinding Room Supervisor). Lifestyle changes are also indicated including optimizing [...] mRNA, LNP-s, No Pre serve, 2-Dose Series ([employer]) 05/14/2020,04/16/2020 SEASONAL INFLUENZA, PF, 6 M & [...] Encounters Date Type Specialty Care Team Description 01/05/2023 Imaging Radiology 01/05/2023 Office Visit Gynecology Obstetrics Kym Bates CRNP [address] [place] [address] 02/05/2023 Office Visit Gynecology Obstetrics Rohan Soni MD [address] [place] [address] Scheduled Orders Name Type Priority Associated Diagnoses [...] influenza documented in this encounter Care Teams Blanket Maker Relationship Specialty Start Date End Date Chapo Boyce DO [address] [place] [address] PCP - General Family Medicine 03/26/20 documented as of this encounter
[2023-05-23] MEDS: DOCUSATE SODIUM 100 MG CAP PO SCH (12:23)
[2023-05-23] MEDS: FERROUS SULFATE 325 MG TAB PO SCH (12:23)
[2023-05-23] MEDS: PRENATAL VITAMIN 1 TAB PO SCH (12:23)
[2023-05-23] MEDS: IBUPROFEN 600 MG TAB PO PRN (12:24)
[2023-05-23] MEDS: DIPHTHER/TETAN/PERTUS Vaccine (Tdap, Adol/Adult) 0.5mL IM ONE (12:33)
[2023-05-23 13:56] LABS: Basophils # (auto) 0.03 K/uL (0.00-0.20); Basophils % (auto) 0.1 %; Hematocrit (blood only) 28.5 % (37.0-47.0); Hemoglobin 9.5 g/dl (12.0-16.0); Immature Granulocytes # (auto) 0.18 K/uL (0.01-0.20); Immature Granulocytes % (auto) 0.9 %; Lymphocytes # (auto) 2.62 K/uL (1.20-3.40); Lymphocytes % (auto) 12.7 %; Mean Corpuscular Hemoglobin 27.6 pg (25.0-34.0); Mean Corpuscular Hgb Conc 33.3 g/dL (32.0-36.0); Mean Corpuscular Volume 82.8 fL (80.0-100.0); Monocytes % (auto) 8.3 %; Neutrophils # (auto) 16.03 K/uL (1.40-6.50); Platelet Count 146 K/uL (130-400); RDW Coefficient of Variation 18.3 % (11.5-14.5); Red Blood Count 3.44 M/uL (4.20-5.40); White Blood Count 20.56 K/ul (4.8-10.8)
[2023-05-24 06:07] LABS: Hematocrit (blood only) 21.6 % (37.0-47.0); Mean Corpuscular Hemoglobin 27.7 pg (25.0-34.0); Mean Corpuscular Hgb Conc 32.4 g/dL (32.0-36.0); Mean Corpuscular Volume 85.4 fL (80.0-100.0); Mean Platelet Volume 11.3 fL (9.4-12.4); Platelet Count 117 K/uL (130-400); RDW Coefficient of Variation 18.8 % (11.5-14.5); RDW Standard Deviation 58.4 fL (36.4-46.3); Red Blood Count 2.53 M/uL (4.20-5.40); White Blood Count 12.71 K/ul (4.8-10.8)
[2023-05-24] MEDS: AMOXICILLIN/CLAVULANATE 875 MG TAB PO SCH (07:54)
[2023-05-24] MEDS: IRON SUCROSE 200 MG in 0.9 % SODIUM CHLORIDE 100 ML IV ONE (11:46)
--- NOTE | 2023-05-24 12:36 | Obstetrical Progress Note ---
Date of Service May 24, 2023 Assessment & Plan Admission and Anticipated Discharge Date Admission Date: May 23, 2023 Subjective Patient is seen and examined. She feels well, no complaints. Ambulating without dizziness Voiding without difficulty Tolerating regular diet with out N&V Bleeding is minimal No fever/ chills/ CP/ SOB/ N&V/ Leg pain Breast feeding without problems Vital Signs Temp Pulse Resp BP Pulse Ox O2 Del Method 05/24/23 08:00 36.8 C 87 16 95/63 L 98 Room Air 05/24/23 04:47 36.6 C 84 16 91/58 L 97 Room Air 05/24/23 01:40 36.6 C 87 18 103/66 97 Room Air 05/23/23 20:30 36.9 C 98 H 18 100/63 98 Room Air 05/23/23 15:10 36.8 C 99 H 18 123/66 97 Room Air Intake and Output 05/23/23 05/24/23 05/24/23 22:59 06:59 14:59 Intake Total 50 / 460 50 / 460 Balance 50 / -640 50 / -640 Intake: IV 50 / 150 50 / 150 Clindamycin/D5w 900 mg In 50 ml 50 / 150 50 / 150 @ 100 mls/hr IV Q8H [facility] Rx#: [id number] Lab Results 05/23/23 05/23/23 05/23/23 Range/Units 02:43 04:31 08:44 WBC 30.03 H* (4.8-10.8) K/ul RBC 3.71 L (4.20-5.40) M/uL Hgb 10.7 L (12.0-16.0) g/dl Hct 32.8 L (37.0-47.0) % MCV 88.4 (80.0-100.0) fL MCH 28.8 (25.0-34.0) pg MCHC 32.6 (32.0-36.0) g/dL RDW Std Deviation 51.1 H (36.4-46.3) fL RDW Coeff of Talita 15.9 H (11.5-14.5) % Plt Count 176 (130-400) K/uL MPV 11.5 (9.4-12.4) fL Immature Gran % (Auto) % Neut % (Auto) % Lymph % (Auto) % Moore % (Auto) % Eos % (Auto) % Baso % (Auto) % Neut # (Auto) (1.40-6.50) K/uL Lymph # (Auto) (1.20-3.40) K/uL Moore # (Auto) (0.11-0.59) K/uL Eos # (Auto) (0.00-0.50) K/uL Baso # (Auto) (0.00-0.20) K/uL Immature Gran # (Auto) (0.01-0.20) K/uL Urine Color Red Urine Appearance Cloudy A (Clear) Urine pH 5.0 (4.5-7.5) Ur Specific Forbes 1.021 (1.000-1.030) Urine Protein 2+ H (Negative) Urine Glucose (UA) Negative (Negative) Urine Ketones Trace H (Negative) Urine Blood 3+ H (Negative) Urine Nitrite Negative (Negative) Urine Bilirubin Negative (Negative) Urine Urobilinogen Negative (Negative) Ur Leukocyte Esterase 1+ H (Negative) Urine WBC (Auto) 10-30 H (0-5) /hpf Urine RBC (Auto) >30 H (0-4) /hpf U Hyaline Cast (Auto) 1-5 (0-5) /lpf U Epithel Cells (Auto) >30 H (0-5) /lpf Urine Bacteria (Auto) Negative (Negative) Ur Renal Epithelial Cell Not Reportable Blood Type O Positive Blood Type Recheck O Positive Antibody Screen NEGATIVE Crossmatch See Detail 05/23/23 05/24/23 Range/Units 12:18 05:33 WBC 20.56 H 12.71 H (4.8-10.8) K/ul RBC 3.44 L 2.53 L (4.20-5.40) M/uL Hgb 9.5 L 7.0 L (12.0-16.0) g/dl Hct 28.5 L 21.6 L (37.0-47.0) % MCV 82.8 D 85.4 (80.0-100.0) fL MCH 27.6 27.7 (25.0-34.0) pg MCHC 33.3 32.4 (32.0-36.0) g/dL RDW Std Deviation 55.0 H 58.4 H (36.4-46.3) fL RDW Coeff of Talita 18.3 H 18.8 H (11.5-14.5) % Plt Count 146 117 L (130-400) K/uL MPV 12.0 11.3 (9.4-12.4) fL Immature Gran % (Auto) 0.9 % Neut % (Auto) 78.0 % Lymph % (Auto) 12.7 % Moore % (Auto) 8.3 % Eos % (Auto) 0.0 % Baso % (Auto) 0.1 % Neut # (Auto) 16.03 H (1.40-6.50) K/uL Lymph # (Auto) 2.62 (1.20-3.40) K/uL Moore # (Auto) 1.70 H (0.11-0.59) K/uL Eos # (Auto) 0.00 (0.00-0.50) K/uL Baso # (Auto) 0.03 (0.00-0.20) K/uL Immature Gran # (Auto) 0.18 (0.01-0.20) K/uL Urine Color Urine Appearance (Clear) Urine pH (4.5-7.5) Ur Specific Forbes (1.000-1.030) Urine Protein (Negative) Urine Glucose (UA) (Negative) Urine Ketones (Negative) Urine Blood (Negative) Urine Nitrite (Negative) Urine Bilirubin (Negative) Urine Urobilinogen (Negative) Ur Leukocyte Esterase (Negative) Urine WBC (Auto) (0-5) /hpf Urine RBC (Auto) (0-4) /hpf U Hyaline Cast (Auto) (0-5) /lpf U Epithel Cells (Auto) (0-5) /lpf Urine Bacteria (Auto) (Negative) Ur Renal Epithelial Cell Blood Type Blood Type Recheck Antibody Screen Crossmatch PE: General: Alert, orientedx3, NAD Abd: soft, NT, fundus firm, below Umbilicus Perineum intact, Lochia rubra minimal Ext; NT, no edema AP: 38 yo s/p , at home, ppd# 2, manual delivery of placenta her in OR, pod#1, s/p 1 unit of PRBCC VSS Afebrile doing well Anemic, asymptomatic, getting IV iron on IV AB and started on PO this morning,WBCC came down Continue routine care All questions were answered D/C home per her request, f/u in office. Results & Data Vital Signs (Past 12 Hours) Vital Signs Temp Pulse Resp BP Pulse Ox O2 Del Method 05/24/23 08:00 36.8 C 87 16 95/63 L 98 Room Air 05/24/23 04:47 36.6 C 84 16 91/58 L 97 Room Air 05/24/23 01:40 36.6 C 87 18 103/66 97 Room Air
[2023-05-24] MEDS ORDERED: bisacodyL 5 MG TABEC PO SCH (20:00)
[2023-05-25] MEDS ORDERED: bisacodyL 10 MG SUPP PR PRN
--- NOTE | 2023-05-31 12:51 | Discharge Summary ---
Date of Service May 31, 2023 Admission HPI Per Admitting Provider 38 F [id number] admitted to L&D with retained placenta and acute blood loss with hypotension. Patient had a planned home delivery with placenta undelivered by blood donor recruiter. Discharge Data Consultations 05/23/23 02:22 Consult Anesthesiology Stat Procedures Performed Operation Date: 05/23/23 02:45 Actual Procedures p Labor Delivery Dilation and Curettage - Kev Coker MD Hospital Course (1) Hypotension due to blood loss: (2) Retained placenta: Plan Manual removal of placenta with curettage done in OR. Patient received blood transfusion for hypotension and acute bleeding as a result of retained placenta and was stabilized.
== END 2023-05-24 16:45 | disposition home health service (06) | DRG 769 ==
LOC: 4S1 02:11 → 4E1 10:40
DX: Z3A.40 40 weeks gestation of pregnancy; I95.89 Other hypotension; Z91.018 Allergy to other foods; Z79.899 Other long term (current) drug therapy; O72.0 Third-stage hemorrhage; O70.0 First degree perineal laceration during delivery; Z88.8 Allergy status to other drugs, medicaments and biological substances